=== PATIENT | female | born 1995 | race Two or more races ===

== ENCOUNTER 2025-03-20 13:52 | Inpatient (IN) | payer BC, SELFPAY ==
[2025-03-20] VITALS (7 sets, daily range): BP systolic 107–120; BP diastolic 49–72; BMI 20.8; BMI 21.6
[2025-03-20 08:08] LABS: Hematocrit 36.2 % (37.0-47.0); Hemoglobin 11.5 g/dL (12.0-16.0); Mean Corp Hgb Conc. 31.8 g/dL (33.0-37.0); Mean Corpuscular Volume 82.6 fL (81.0-99.0); Nucleated Red Blood Cells % 0 %; Platelet Count 180 10^3/uL (130-400); Red Cell Dist. Width 18.1 % (11.5-14.5)
--- NOTE | 2025-03-20 08:23 | ED.GENMED ---
History of Present Illness
General
Chief Complaint: Numbness
Source: patient
Time Seen by Provider: 03/20/25 08:04
History of Present Illness
History of Present Illness:
29-year-old female presents to the emergency room multiple complaints but primarily paresthesias existing in the left neck, shoulder, face and the upper part of the left anterior chest. Symptoms began a couple days ago vomiting just her left neck
and has moved to the above areas. Patient also feels a little short of breath and is having some mild abdominal cramping. Patient denies any focal weakness. She has been able to perform all her daily activities without any limitation. The
shortness of breath is not worse with activity. She does not have any chest pain. She does not have any pain with deep inspiration. No recent travel or periods of immobilization. Patient takes Depakote but no other prescription medications. She
denies any recreational drug use. No recent illnesses
Phy Exam
Physical Exam
Physical Exam:
General: Awake, Alert, Oriented X3. No acute distress.
Vitals: unremarkable
Head: Atraumatic
Eyes: Pupils equal, EOMI
Throat: Airway intact, no exudates
Neck: Trachea midline
Lungs: Clear and equal b/l
Heart: Regular rate, no murmurs
Abd: Soft, Nontender, No pulsatile mass
Neuro: Cranial nerves intact, muscle strength equal bilaterally, cerebellar exam normal. Sensation intact to light touch throughout the body. Patient notes there is more of a tingly feeling in the above noted areas but she does have sensation.
Skin: Warm, dry, no rash
Extremities: pulses equal b/l, no edema
Course
Orders/Labs/Results
Orders:
Orders
03/20/25 07:24
Electrocardiogram (*1) Urgent
Reason for Study: Shortness of Breath
EKG- Treatment ONCE
03/20/25 07:39
Test Result ONCE
03/20/25 07:58
Complete Blood Count/With Diff Urgent
03/20/25 08:21
Add On- LAB Urgent
Tests Added?: TSH w reflex T4, Lyme progressive, thiamine, folate
03/20/25 08:22
CT Head W/o Iv Contrast Urgent
Comment:
Reason For Exam: left face/neck paresthesia
CR Chest - 2 Views Urgent
Comment:
Reason For Exam: sob
03/20/25 08:55
Comprehensive Metabolic Panel Urgent
Folate Urgent
Comment: ADD ON
HCG, Serum Qualitative Screen Urgent
Lyme Progressive Urgent
Comment: ADD ON
TSH Reflex To Free T4 Urgent
Comment: ADD ON
Vitamin B1, Whole Blood [S] Urgent
03/20/25 09:55
MR Brain W/o & With Contrast Routine
Comment:
Reason For Exam: MS, left optic neuritis
Recent pill cam endoscopy?: No
03/20/25 10:00
MethylPREDNISolone PF [Solu-Medrol Pf] 250 mg IV Q6H
03/20/25 13:32
Admit/Transfer Patient As Directed
Co-Sign Provider:
Level of Care: Inpatient admission
Assign to:: Medical/Surgical
Physician / Group: sade beckwith
Diagnosis: L sided numbness
Reason for Hospitalization: L sided numbness
Expected length of stay greater than two midnights?: Yes
ELOS- Estimated Length of Stay in days: 2
I certify the patient meets the requirements for IP care: Yes
PRN Pain Medication Management As Directed
May give lesser potent ordered pain med per pt: Yes
preference::
Protocol:: Medication orders for pain may be administered in a
manner that supports deferring to patient preference
when the pt is:
- Requesting an ordered lesser potent pain medication.
Least to most potent pain medications are defined
as: acetaminophen < NSAID < tramadol < opioids
(morphine, oxycodone, hydromorphone).
- Requesting a lesser dose of the same medication IF
ORDERED.
- Requesting a less intrusive route of administration
if both routes are prescribed by the provider (PO <
IV).
03/20/25 13:33
Code Status As Directed
Resuscitation Status: Full Code
Abnormal Lab Results
03/20/25 03/20/25
07:58 08:55
Hgb 11.5 L g/dL
(12.0-16.0)
Hct 36.2 L %
(37.0-47.0)
MCH 26.3 L pg
(27.0-31.0)
MCHC 31.8 L g/dL
(33.0-37.0)
RDW 18.1 H %
(11.5-14.5)
MPV 11.9 H fL
(7.4-10.4)
Chloride 108 H mmol/L
(98-107)
Folate > 20.0 H ng/ml
(2.76-20)
03/20/25 07:58
03/20/25 08:55
Vital Signs
Initial and Last Documented VS:
Initial Vital Signs
Temp Pulse Resp BP Pulse Ox
98.1 F 54 18 112/57 100
03/20/25 07:20 03/20/25 07:20 03/20/25 07:20 03/20/25 07:20 03/20/25 07:20
Last Documented Vital Signs
Temp Pulse Resp BP Pulse Ox
98.1 F 55 18 115/72 100
03/20/25 07:20 03/20/25 10:50 03/20/25 10:50 03/20/25 10:50 03/20/25 10:50
MDM/Problems Addressed
Differential Diagnosis Includes:
MS, lyme, vitamin deficiency,
MDM/Problems Addressed:
Patient presents the emergency room with unusual distribution of paresthesia. Patient also complaining of chest and jaw pain. Initial set of labs are unremarkable. CT of the head is unremarkable. The overall presentation concerns me for an MS
given the unusual distribution. Neurology consultation obtained. Dr. Loza also has a high suspicion for MS. We will hospitalize the patient and empirically start Solu-Medrol.
*Radiology
Radiology exam reviewed: radiology read reviewed
*Pulse Oximetry
SaO2: 100
Oxygen Mode of Delivery: Room air
Patient hypoxic: no
*EKG
Interpreted by ED Provider?: Yes
Interpretation: abnormal
Heart Rate: 46
Rate: bradycardiac
Rhythm: sinus
[place]: normal axis
Interval: normal interval
QRS Pattern: normal QRS
Ischemia: no ischemia
*Welder Fitter Interpretation
Rate: bradycardiac
Interpretation: abnormal
Heart Rate: 46
Rhythm: sinus
*Critical Care Note
Total Time (30-74mins, 75-104mins- exclusive of procedures): Not Applicable
ED Attending Note
-
Portions of this chart may have been created with voice recognition software.� Occasional wrong word or��sound alike� substitutions may have occurred due to the inherent limitations of voice recognition software.
Discharge Plan
Departure
Patient Disposition: Admit
Date of Disposition: 03/20/25
Time of Disposition: 10:10
Admit to: Med/Surg
Presentation/result/management discussed w/ accepting MD/DO: Hospitalist
Condition: Fair
Discharge Problem:
Paresthesia
Interventions
Interventions:
*Risk Screen - Suicide Last Done: 03/20/25 07:20
*General Assessment Last Done: 03/20/25 07:20
*Neglect/Abuse Screening Last Done: 03/20/25 07:20
*ED- Fall Risk Assessment Last Done: 03/20/25 08:11
*ED COVID-19 Vaccine History Last Done: 03/20/25 08:11
ED- Neurological Assessment Last Done: 03/20/25 08:11
[2025-03-20 09:29] LABS: HCG, Serum Qualitative Screen Negative
[2025-03-20 09:33] LABS: ALT (SGPT) < 10 U/L (0-35); AST (SGOT) 16 U/L (14-36); Albumin 4.5 g/dl (3.5-5.0); Alkaline Phosphatase 44 U/L (38-126); Blood Urea Nitrogen 11 mg/dl (7-17); Calcium 9.4 mg/dl (8.4-10.2); Carbon Dioxide 24 mmol/L (22-30); Chloride 108 mmol/L (98-107); Estimated Creatinine Clearance 103 ml/min; Glucose 90 mg/dl (70-99); Potassium 4.1 mmol/L (3.5-5.1); Sodium 141 mmol/L (135-145); Total Protein 7.3 g/dl (6.3-8.2); eGFR > 60.00
--- NOTE | 2025-03-20 09:56 | CON.NEURO ---
Neuro Assessment/Plan
Assessment
suspect multiple sclerosis
exam with subtle left sided weakness numbness and left eye red desaturation which probably represents an initial presentation of optic neuritis which was asymptomatic.
admit for brain MRI w/o and w/ contrast
Solumedrol 250 q6 hrs tentatively 3 days for symptomatic recovery though it will not change the overall course
Consultation
Order
Date of Consultation: 03/20/25
Requesting Provider: Roberth Stewart
Reason for Consult: left sided numbness
Subjective/Objective
Subjective Data
Date of Service: March 20, 2025
29 year old right handed woman evaluated for left neck/shoulder/face/upper arm numbness. started last night left neck/skull base and has since spread. some tenderness left trapezius. no weakness, vision loss, double vision, speech changes.
h/o L ACL surgery after which she had numbness in the area.
Objective Data
Vital Signs
Temp Pulse Resp BP Pulse Ox
36.7 C 50 18 107/67 100
03/20/25 07:20 03/20/25 08:14 03/20/25 08:14 03/20/25 08:14 03/20/25 08:25
Lab Results
03/20/25 07:58
03/20/25 08:55
Sodium 141 mmol/L (135-145) 03/20/25 08:55
Potassium 4.1 mmol/L (3.5-5.1) 03/20/25 08:55
BUN 11 mg/dl (7-17) 03/20/25 08:55
Glucose 90 mg/dl (70-99) 03/20/25 08:55
Calcium 9.4 mg/dl (8.4-10.2) 03/20/25 08:55
Patient Allergies
No Known Allergies Allergy (Unverified 03/20/25 07:19)
Physical Exam
-
AAOx3, speech clear, language intact
mild red desaturation OS. VFF, EOMI, face symmetric
trace LUE/LE weakness, left pronator drift
sensation with mild decreased pin left scalp/neck down to mid back/upper chest, and patch numbness LLE which she reports is chronic
finger to nose normal
Medications
-
Active Medications
Generic Name Dose Route Start Last Admin
Trade Name Freq PRN Reason Stop Dose Admin
Methylprednisolone Sodium Succinate 250 mg 03/20/25 10:00
Methylprednisolone Pf 125 Mg/2 Ml Vial IV 03/23/25 09:59
Q6H FRANCI
[2025-03-20 10:39] LABS: Folate > 20.0 ng/ml (2.76-20)
[2025-03-20] MEDS: SOLU-MEDROL PF 250 MG IV ×3 (10:47→21:34)
--- NOTE | 2025-03-20 11:29 | HPS.HSE ---
Family Physician
-
Family Physician: Timi Faust MD
Chief Complaint
-
Left-sided numbness
History of Present Illness
29-year-old female with a past medical history of bipolar disorder who presents with numbness of the left neck, left face, for the past 2 to 3 days. Patient reports this morning, her numbness extended to her left upper extremity, and around her
left chest. Associated symptoms include shortness of breath, and abdominal cramping after eating certain foods. She denies dysphagia, dysarthria, or changes in vision. She reports having some left-sided weakness when being evaluated by neurology.
Denies chest pain. No fever, no vomiting. She has dark stools from taking iron. No dysuria, no bloody stools.
Medical History
Past Medical History
Past Medical History: Reports Other
Additional Past Medical History:
Bipolar disorder
Past Surgical History: Reports Other
Additional Past Surgical History:
Left ACL surgery x 2
Freedom teeth removal
Dental implant
Social History
Tobacco: Non-smoker
Alcohol: None
Drug: None
Family History
Family History: Other (Denies family history of MS)
Allergies / Home Medications
Allergies reflects when Allergies were last updated in [facility].
Home Medications with original date entered in [facility]
Allergy/Medication List:
Allergies
Allergy/AdvReac Type Severity Reaction Status Date / Time
No Known Allergies Allergy Unverified 03/20/25 07:19
Home Medications Table - record
�Medication �Instructions �Recorded �Confirmed
cranberry fruit 450 mg tablet 450 mg PO DAILY Supplement 03/20/25 03/20/25
(cranberry)
divalproex 500 mg tablet,extended 500 mg PO QPM Mental Health/Anxiety 03/20/25 03/20/25
release 24 hr
ferrous sulfate 325 mg (65 mg 325 mg PO DAILY Supplement 03/20/25 03/20/25
iron) tablet
lemon balm 500 mg capsule 250 mg PO DAILY Supplement 03/20/25 03/20/25
omega-3 fatty acids-fish oil 684 1 cap PO DAILY Supplement 03/20/25 03/20/25
mg-1,200 mg capsule,delayed release
Review of Systems
-
A 12 point ROS was completed and negative except as noted: Yes
Physical Exam
Vital Signs
Vital Signs
Temp Pulse Resp BP Pulse Ox
98.1 F 55 18 115/72 100
03/20/25 07:20 03/20/25 10:50 03/20/25 10:50 03/20/25 10:50 03/20/25 10:50
Physical Exam
General: No Apparent Distress
HEENT: NormoCephalic, Anicteric and Moist mucous membranes
Respiratory: Clear
Cardiac: S1/S2 and Regular Rhythm
GI: Soft, Non Tender, Non Distended and Normal Bowel Sounds
Musculoskeletal: No Clubbing, No Cyanosis and No Edema
Skin: Warm and Dry
Neuro: Awake, Alert, Oriented and Other (Subtle left-sided weakness, per neurology: left eye red desaturation)
Psych: Calm
Laboratory Results
-
03/20/25 07:58
03/20/25 08:55
Laboratory Results
Total Bilirubin 0.5 mg/dl (0.2-1.3) 03/20/25 08:55
AST 16 U/L (14-36) 03/20/25 08:55
ALT < 10 U/L (0-35) 03/20/25 08:55
Alkaline Phosphatase 44 U/L (38-126) 03/20/25 08:55
Impression/Plan
-
HPI: 29-year-old female with a past medical history of bipolar disorder who presents with numbness of the left neck, left face, for the past 2 to 3 days. Patient reports this morning, her numbness extended to her left upper extremity, and around
her left chest. Associated symptoms include shortness of breath, and abdominal cramping after eating certain foods. She denies dysphagia, dysarthria, or changes in vision. She reports having some left-sided weakness when being evaluated by
neurology. Denies chest pain. No fever, no vomiting. She has dark stools from taking iron. No dysuria, no bloody stools.
#Left-sided paresthesia/numbness
#Subtle left-sided weakness
#Optic neuritis with left eye red desaturation
Appreciate neurology input, patient's symptoms are concerning for multiple sclerosis
Started on Solu-Medrol 250 mg every 6 hours
PT/OT
#Abdominal cramping
Bentyl as needed, monitor
#Shortness of breath
Patient is breathing comfortably, no wheezing, she is not hypoxic
Monitor for now
#Bipolar disorder
Continue Depakote
#Probable iron deficiency anemia
Continue home ferrous sulfate supplements
DVT prophylaxis�OOB a 4 times daily
Full code
Updated mom at bedside 03/20
Total time spent to see the patient on the floor, examine the patient, review data and lab results, discuss treatment plan with patient, nursing staff around 65 minutes.
[2025-03-20] MEDS: DEPAKOTE ER (24 HR RELEASE) 500 MG PO (17:05)
[2025-03-20] MEDS: FEOSOL 325 MG PO (17:06)
[2025-03-20] MEDS: MOTRIN 600 MG PO (21:22)
[2025-03-21] MEDS: SOLU-MEDROL PF 250 MG IV ×4 (04:56→22:20)
[2025-03-21] MEDS: MOTRIN 600 MG PO (05:06)
[2025-03-21 07:49] VITALS: BP 86/38
--- NOTE | 2025-03-21 08:57 | W.PN.HOSP.TC ---
Today's Communication/Plan
-
see bold
Assessment / Plan
Assessment / Plan
HPI: 29-year-old female with a past medical history of bipolar disorder who presents with numbness of the left neck, left face, for the past 2 to 3 days. Patient reports this morning, her numbness extended to her left upper extremity, and around
her left chest. Associated symptoms include shortness of breath, and abdominal cramping after eating certain foods. She denies dysphagia, dysarthria, or changes in vision. She reports having some left-sided weakness when being evaluated by
neurology. Denies chest pain. No fever, no vomiting. She has dark stools from taking iron. No dysuria, no bloody stools.
#Left-sided paresthesia/numbness
#Subtle left-sided weakness
#Optic neuritis with left eye red desaturation
Appreciate neurology input, patient's symptoms are concerning for multiple sclerosis
Brain MRI shows subtle increased enhancement of the left optic nerve, suggestive of left optic neuritis
Follow-up C-spine and thoracic spine MRI, patient also for LP today
Continue Solu-Medrol 250 mg every 6 hours
PT/OT
#Abdominal cramping
Bentyl as needed, monitor
#Shortness of breath
Patient is breathing comfortably, no wheezing, she is not hypoxic
Monitor for now
#Bipolar disorder
Continue Depakote
#Probable iron deficiency anemia
Continue home ferrous sulfate supplements
DVT prophylaxis�OOB a 4 times daily
Full code
Updated mom at bedside 03/21
Total time spent to see the patient on the floor, examine the patient, review data and lab results, discuss treatment plan with patient, nursing staff around 38 minutes.
Physical Exam
General: No Apparent Distress
HEENT: NormoCephalic, Anicteric and Moist mucous membranes
Respiratory: Clear
Cardiac: S1/S2 and Regular Rhythm
GI: Soft, Non Tender, Non Distended and Normal Bowel Sounds
Musculoskeletal: No Clubbing, No Cyanosis and No Edema
Skin: Warm and Dry
Neuro: Awake, Alert, Oriented and Other (Subtle left-sided weakness, per neurology: left eye red desaturation)
Psych: Calm
Anticipated Discharge: Within 24 hours
Subjective/Interval History
-
Date of Service: March 21, 2025
Patient reports improvement in her left-sided numbness and weakness. Denies headache, vision changes, dysarthria, dysphagia. No fever, no vomiting.
Objective Data
-
Vital Signs:
Vital Signs
Temp Pulse Resp BP Pulse Ox
98.7 F 53 14 86/38 99
03/21/25 07:49 03/21/25 07:49 03/21/25 07:49 03/21/25 07:49 03/21/25 08:28
I&O
03/20/25 03/21/25 03/22/25
06:59 06:59 06:59
Intake Total 480 / 480
Balance 480 / 480
[2025-03-21] MEDS: FEOSOL 325 MG PO (08:58)
--- NOTE | 2025-03-21 09:23 | PTOTSP ---
The patient is independent with ambulation and stairs, no strength or coordination deficits noted with mobility. No PT needs identified at this time, will sign off.
[2025-03-21 11:18] VITALS: BP 106/49
[2025-03-21 12:49] VITALS: BP 108/56; PULSE 62; O2SAT 100
--- NOTE | 2025-03-21 12:58 | PTOTSP ---
pt currently requires no assistance to complete simple ADLs, functional transfers, ambulation. pt demonstrates no overt deficits, no symptoms from chief complaint. no acute OT needs identified, will sign off.
[2025-03-21 13:01] LABS: INR 1.21; PT 15.8 Sec (11.4-14.6)
[2025-03-21 13:41] LABS: Lyme Antibody Screen, EIA Negative (Negative)
[2025-03-21] MEDS: MAALOX 30 ML PO (14:25)
[2025-03-21] MEDS: ATIVAN 1 MG PO (14:51)
[2025-03-21] MEDS: DEPAKOTE ER (24 HR RELEASE) 500 MG PO (17:11)
--- NOTE | 2025-03-21 17:11 | CM ---
Alert awake oriented patient who lives with her mom oJhnson in a 2 story home with 2 steps to enter and 20 steps to bed/bathroom. She is independent in activates of daily living.She does drive .No adaptive devices. Offered VN she decline dneed.
No hx VN in past . No SNF hx
Pharmacy [facility]
PCP Dr Faust
PLAN Home with no needs
--- NOTE | 2025-03-21 19:43 | W.PN.NEURO.1 ---
Today's Communication / Plan
-
LP tomorrow then DC
Neuro Assessment/Plan
Assessment
MRI brain imgs and report reviewed, left optic nerve enhancement consistent with optic neuritis. no other lesions
MRI cervical and thoracic cord no lesions
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
i believe she had one event acutely that hit two spaces however no chronic lesion to make dissemination in time
LP for oligoclonal bands which could fulfill dissemination in time, and for NMO antibody
then she can go home. 2 week follow up with neuro [employer] re: results, and if studies negative and CIS remains the diagnosis her choice of starting Copaxone or see if she has a second attack
will perform trapezius trigger point inj tomorrow before d/c so she can have steroids in her system until seen by neuro outpatient
all this discussed with patient and family questions answered and clarified
Subjective/Objective
Subjective Data
Date of Service: March 21, 2025
patient reports weakness/numbness/paresthesias are essentially resolved, and left trapezius trigger point pain is reduced with steroids
concerns for recurring symptoms when steroids wear off before healed, asking for outpatient steroids until she sees neuro as outpatient
Objective Data
Vital Signs
Temp Pulse Resp BP Pulse Ox
36.7 C 55 14 106/49 100
03/21/25 11:18 03/21/25 11:18 03/21/25 11:18 03/21/25 11:18 03/21/25 11:18
Lab Results
03/20/25 07:58
03/20/25 08:55
PT 15.8 Sec (11.4-14.6) H 03/21/25 12:40
INR 1.21 03/21/25 12:40
Sodium 141 mmol/L (135-145) 03/20/25 08:55
Potassium 4.1 mmol/L (3.5-5.1) 03/20/25 08:55
BUN 11 mg/dl (7-17) 03/20/25 08:55
Glucose 90 mg/dl (70-99) 03/20/25 08:55
Calcium 9.4 mg/dl (8.4-10.2) 03/20/25 08:55
Patient Allergies
No Known Allergies Allergy (Unverified 03/20/25 07:19)
[2025-03-21 23:00] VITALS: BP 95/49
[2025-03-22] MEDS: SOLU-MEDROL PF 250 MG IV ×2 (04:55→09:27)
[2025-03-22] MEDS: FEOSOL 325 MG PO (07:41)
[2025-03-22 07:45] VITALS: BP 99/49
--- NOTE | 2025-03-22 09:17 | W.PN.HOSP.TC ---
Today's Communication/Plan
-
Cleared by neurology for discharge today
Assessment / Plan
Assessment / Plan
HPI: 29-year-old female with a past medical history of bipolar disorder who presents with numbness of the left neck, left face, for the past 2 to 3 days. Patient reports this morning, her numbness extended to her left upper extremity, and around
her left chest. Associated symptoms include shortness of breath, and abdominal cramping after eating certain foods. She denies dysphagia, dysarthria, or changes in vision. She reports having some left-sided weakness when being evaluated by
neurology. Denies chest pain. No fever, no vomiting. She has dark stools from taking iron. No dysuria, no bloody stools.
#Left-sided paresthesia/numbness
#Subtle left-sided weakness
#Optic neuritis with left eye red desaturation
#Clinically isolated syndrome
Appreciate neurology input, patient's symptoms are concerning for multiple sclerosis
Per neurology, patient's diagnosis is currently clinically isolated syndrome since we do not have test results to confirm multiple sclerosis
Brain MRI shows subtle increased enhancement of the left optic nerve, suggestive of left optic neuritis, C-spine and T-spine MRI negative for lesions
Status post lumbar puncture 03/22, oligoclonal bands pending
Dramatically improved with Solu-Medrol 250 mg every 6 hours
PT/OT -patient is independent
Cleared by neurology for discharge, she needs to follow-up with an MS specialist neurologist in the office
#Abdominal cramping
Bentyl as needed, monitor
#Shortness of breath
Patient is breathing comfortably, no wheezing, she is not hypoxic
Monitor for now
#Bipolar disorder
Continue Depakote
#Probable iron deficiency anemia
Continue home ferrous sulfate supplements
DVT prophylaxis�OOB a 4 times daily
Full code
Updated mom at bedside 03/22
Physical Exam
General: No Apparent Distress
HEENT: NormoCephalic, Anicteric and Moist mucous membranes
Respiratory: Clear
Cardiac: S1/S2 and Regular Rhythm
GI: Soft, Non Tender, Non Distended and Normal Bowel Sounds
Musculoskeletal: No Clubbing, No Cyanosis and No Edema
Skin: Warm and Dry
Neuro: Awake, Alert, Oriented and Other (Subtle left-sided weakness, per neurology: left eye red desaturation)
Psych: Calm
Anticipated Discharge: Today
Subjective/Interval History
-
Date of Service: March 22, 2025
Patient's left trapezius felt better after her trigger point injection. Her numbness has improved. No fever, no vomiting.
Objective Data
-
Vital Signs:
Vital Signs
Temp Pulse Resp BP Pulse Ox
98.4 F 64 14 99/49 97
03/22/25 07:45 03/22/25 07:45 03/22/25 07:45 03/22/25 07:45 03/22/25 07:45
I&O
03/21/25 03/22/25 03/23/25
06:59 06:59 06:59
Intake Total 480 / 480 1440 / 1440
Balance 480 / 480 1440 / 1440
[2025-03-22 10:03] VITALS: BP 107/57; BP_SYST 56
[2025-03-22 11:12] VITALS: BP 113/55; BP_SYST 57
[2025-03-22 12:17] LABS: CSF Color Colorless; Red Cell Count/CSF 9 mm^3; White Cell Count/CSF 3 mm^3 (0-5)
--- NOTE | 2025-03-22 14:36 | W.DCSUMMARY ---
Discharge Summary
Discharge Data
Date of Admission: 03/20/25
Date of Discharge: 03/22/25
-
Pending Results: No
Hospital Course
Discharge diagnosis:
Clinically isolated syndrome
Left-sided paresthesia/numbness
Subtle left-sided weakness
Optic neuritis with left eye red desaturation
Bipolar disorder
Consults: Neurology
Brain MRI:
Subtle increased STIR signal and enhancement involving the left optic nerve, suggestive of the given clinical diagnosis of the left optic neuritis.
The rest of the brain has a normal MR appearance. No evidence for another focal area of demyelination or abnormal enhancement.
C-spine/T-spine MRI:
There is no abnormal cord signal or enhancement of the cervical spine.
There is multilevel mild disc degeneration with a small annular fissure of C5-C6. There is no significant spinal canal or neuroforaminal narrowing.
There is no abnormal signal or enhancement within the thoracic spinal cord.
There is no significant spinal canal or neuroforaminal stenosis.
Procedures:
03/22/2025�lumbar puncture
Hospital course:
29-year-old female with a past medical history of bipolar disorder who presented with left sided paresthesia/numbness and subtle left-sided weakness. Patient was seen in conjunction of neurology, she was found to have optic neuritis with left eye
red desaturation. Her symptoms were concerning for possible multiple sclerosis. She was treated with IV steroids. Brain MRI confirms left optic neuritis. C-spine and T-spine MRI were negative for lesions. She had a lumbar puncture as well. CSF
oligoclonal bands were negative. Patient's left-sided paresthesia improved. She did receive a trigger point injection for her left trapezius trigger point. Her symptoms improved. Per neurology, patient's diagnosis is currently clinically
isolated syndrome since we do not have enough test results to confirm multiple sclerosis. She is medically stable and cleared by neurology for discharge. She has been instructed to follow-up with an MS specialist.
Disposition: Home self-care
Discharge planning: Required 39 minutes
Discharge Plan
-
Patient Disposition: Home (Routine Discharge)
Discharge Diagnosis/Procedures: Clinically isolated syndrome
Condition: Good
Diet: Regular
Activity: As tolerated
Driving Restrictions: As prior to admission
Activity Restrictions/Additional Instructions:
Please follow-up with a neurologist, especially one that specializes in MS disorders, as soon as possible.
Also follow-up with your primary care provider in 1 week.
Referrals:
Timi Faust MD [Family Provider] - in one week
Prescriptions:
Continued
ferrous sulfate 325 mg (65 mg iron) Tablet
325 mg PO DAILY
divalproex 500 mg Tablet Extended Release 24 Hr
500 mg PO QPM
omega-3 fatty acids-fish oil 684-1,200 mg Capsule,Delayed Release(Dr/Ec)
1 cap PO DAILY
cranberry 450 mg Tablet
450 mg PO DAILY
lemon balm 500 mg Capsule
250 mg PO DAILY
Discharge Orders:
Discharge Patient (As Directed); Ordered 03/22/25
Ordered By: Aakash Nowak
Discharge Date and Time
Discharge Date/Time: 03/22/25 15:38
Print Language: FRISIAN
--- NOTE | 2025-03-22 14:44 | W.PN.UPDATE ---
Update Note
Progress Note Update
procedure note
Trigger point inj 1-2
M79.10 trigger point myalgia
in 3 cc syringe was drawn 2 cc bupivacaine 0.5 and 40 mg Kenalog-40
left trapezius trigger point palpated and 3 cc injected
--- NOTE | 2025-03-22 15:00 | CM ---
entered order for discharge.
Her mom in room . Her mom will drive her home.
Offered VN she declined need.
PLAN Home no needs
[2025-03-22 15:34] VITALS: BP 112/52
[2025-03-23 13:35] LABS: Vitamin B1, Whole Blood 105 nmol/L (70-180)
[2025-03-24 19:06] LABS: Albumin, CSF 26 mg/dL (0-35); Albumin, Serum 3929 mg/dL (3500-5200); IgG, CSF 3.7 mg/dL (0.0-6.0)
== END 2025-03-22 15:38 | disposition home or self-care (01) | DRG 59 ==
LOC: 3 WEST ACU 13:52
PROVIDERS: Emergency Medicine; Radiology Vascular & Interventional Radiology; ADMITTING PHYSICIAN Family Medicine; CONSULT PHYSICIAN Psychiatry & Neurology Clinical Neurophysiology; EMERGENCY PHYSICIAN Emergency Medicine; FAMILY PHYSICIAN Family Medicine
DX: G35 Multiple sclerosis (principal); H46.9 Unspecified optic neuritis; F31.9 Bipolar disorder, unspecified; D50.9 Iron deficiency anemia, unspecified
CPT/HCPCS: 62328; 70450; 70553; 71046; 72156; 72157; 80053; 82040; 82042; 82746; 82784; 82945; 83916; 84157; 84425; 84443; 84703; 85025; 85610; 86618; 89051; 93005; 97161; 97166; 99285; A9575

== ENCOUNTER 2025-03-25 10:47 | Emergency (ER) | payer BC, SELFPAY ==
[2025-03-25 10:56] VITALS: BP 112/70
[2025-03-25 12:01] VITALS: BMI 23.9
--- NOTE | 2025-03-25 13:32 | ED.GENMED ---
History of Present Illness
General
Chief Complaint: Headache
Source: patient, significant other and family (mother)
Exam Limitations: none
Time Seen by Provider: 03/25/25 11:58
Nursing documentation reviewed up to this point in time: agreed with
History of Present Illness
History of Present Illness:
Ms. Deirdre Gregg is a 29yoF with a PMH of clinically isolated syndrome (dx 03/21/25) and bipolar disorder (on Depakote), who is presenting with a severe migraine as well as fatigue, urinary retention, and heat intolerance.
She was recently admitted 03/20/25-03/22/25 for concern for multiple sclerosis. She presented to the ED on 03/20/25 for numbness/paresthesia in her left shoulder, chest, neck, and face, which was ameliorated with a L shoulder steroid injection. She
received a lumbar puncture on 03/22/25 and was discharged. She has a neurology appointment on 04/03/25. She received IV steroids that helped her symptoms while inpatient.
A mild headache started after discharge for 2 days. She woke up this morning with a severe headache. She is holding her head in her hands as we speak. She tried Tylenol but it did not provide sufficient relief. She denies photophobia. She denies her
headache increasing with standing up. She has had tension headaches before but nothing like this before.
She states she has difficulty emptying her bladder completely. She denies suprapubic pain. She stated the urinary retention started near the end of her admission.
She noticed her heat intolerance when she was walking her dog outside in the warm weather yesterday.
Review of Systems
Review of Systems
All Other Systems: ROS reviewed and negative except as documented in HPI and ROS
Phy Exam
Physical Exam
Physical Exam:
General: holding head in pain; alert; conversant
Eyes: EOMI
General Physical Exam
General Presentation: well appearing and moderate distress (holding head in pain)
General age: appears stated age
General Habitus: normal
General Mental: alert
Eye Exam
Eye Exam: EOMI, cornea clear and conjunctiva normal
Neurological Exam
Neurological Exam: alert and speech normal
Skin Exam
Skin Exam: normal color
Course
Orders/Labs/Results
Orders:
Orders
03/25/25 13:32
Ketorolac [Toradol] 30 mg IV NOW STA
03/25/25 13:35
Metoclopramide [Reglan] 10 mg IV NOW STA
03/25/25 13:37
US Urinary Bladder Only Urgent
Comment:
Reason For Exam: urinary retention; pending MS workup
03/25/25 15:02
0.9% Sodium Chloride 1000 ml [Nss] 1,000 ml IV BOLUS
03/25/25 15:37
Urinalysis Reflex To Culture Urgent
Date Specimen was Collected: 03/25/25
Time Specimen was Collected: 13:46
Vital Signs
Initial and Last Documented VS:
Initial Vital Signs
Temp Pulse Resp BP Pulse Ox
97.9 F 69 18 112/70 100
03/25/25 10:56 03/25/25 10:56 03/25/25 10:56 03/25/25 10:56 03/25/25 10:56
Last Documented Vital Signs
Temp Pulse Resp BP Pulse Ox
97.9 F 60 18 112/70 100
03/25/25 10:56 03/25/25 16:24 03/25/25 16:24 03/25/25 10:56 03/25/25 16:24
MDM/Problems Addressed
Differential Diagnosis Includes:
Migraine
Postdural puncture headache
Neurogenic bladder
UTI
Uhthoff phenomenon
MDM/Problems Addressed:
Toradol 15 mg IV and Reglan 10 mg IV for migraine
IV fluids for possible post-dural puncture headache
Bladder scan: 68 ml (normal)
UA to evaluate for possible UTI causing urinary symptoms
*Pulse Oximetry
SaO2: 100
Oxygen Mode of Delivery: Room air
Patient hypoxic: no
*Critical Care Note
Total Time (30-74mins, 75-104mins- exclusive of procedures): Not Applicable
ED Attending Note
-
Portions of this chart may have been created with voice recognition software.� Occasional wrong word or��sound alike� substitutions may have occurred due to the inherent limitations of voice recognition software.
Discharge Plan
Departure
Patient Disposition: Home (Routine Discharge)
Date of Disposition: 03/25/25
Patient with high blood pressure during this ER visit?: No
Condition: Fair
Discharge Problem:
Headache, Fatigue, Urinary retention
Instructions: Headache, Adult (DC)
Prescriptions:
New
metoclopramide HCl [Reglan] 10 mg tablet
10 mg PO Q8H Qty: 9 0RF
No Action
ferrous sulfate 325 mg (65 mg iron) Tablet
325 mg PO DAILY
divalproex 500 mg Tablet Extended Release 24 Hr
500 mg PO QPM
omega-3 fatty acids-fish oil 684-1,200 mg Capsule,Delayed Release(Dr/Ec)
1 cap PO DAILY
cranberry 450 mg Tablet
450 mg PO DAILY
lemon balm 500 mg Capsule
250 mg PO DAILY
pregabalin [Lyrica] 50 mg capsule
50 mg PO BID Qty: 20 0RF
Referrals:
Timi Faust MD [Family Provider]
Stand Alone Forms: Return to Work
Activity Restrictions/Additional Instructions:
You came to the ED for headache, as well as difficulty emptying the bladder, fatigue, and heat intolerance. It is possible your headache is resulting from the lumbar puncture. You were given IV fluids, and try to drink plenty of fluids, which
helps treat this kind of headache.
The symptoms may all be related to the clinically isolated syndrome. The bladder scan did not demonstrate significant urinary retention but your urinary retention is still an important symptom to tell your neurologist about. Heat intolerance can
also occur multiple sclerosis, known as the Uhthoff phenomenon.
Please return to the emergency department if you develop vomiting, blurry vision, or focal neurological deficits, such as tingling or numbness in the face.
Interventions
Interventions:
*Risk Screen - Suicide Last Done: 03/25/25 10:56
*General Assessment Last Done: 03/25/25 10:56
*Neglect/Abuse Screening Last Done: 03/25/25 12:01
*ED- Fall Risk Assessment Last Done: 03/25/25 12:01
*ED COVID-19 Vaccine History Last Done: 03/25/25 10:56
*Nursing Disposition Last Done: 03/25/25 16:27
ED- Neurological Assessment Last Done: 03/25/25 12:01
Discharge Date and Time
Discharge Date/Time: 03/25/25 16:28
Print Language: BENINESE
[2025-03-25] MEDS: REGLAN 10 MG IV (13:58)
[2025-03-25] MEDS: TORADOL 30 MG IV (13:59)
[2025-03-25 15:47] LABS: Urine Character Clear (Clear)
== END 2025-03-25 16:28 | disposition home or self-care (01) ==
LOC: EMR 10:47
PROVIDERS: EMERGENCY PHYSICIAN Emergency Medicine; FAMILY PHYSICIAN Family Medicine
DX: R51.9 Headache, unspecified (principal); R53.83 Other fatigue; R33.9 Retention of urine, unspecified; R39.198 Other difficulties with micturition; F31.9 Bipolar disorder, unspecified
CPT/HCPCS: 99284; 96374; 96375; 76857; 81003

== ENCOUNTER 2025-03-29 01:24 | Emergency (ER) | payer BC, SELFPAY ==
[2025-03-29 01:29] VITALS: BP 112/66
[2025-03-29 03:07] VITALS: BP 93/55; BMI 22.1
--- NOTE | 2025-03-29 06:29 | ED.GENMED ---
History of Present Illness
<Oksana Regan DO - Last Filed: 03/29/25 06:41>
General
Chief Complaint: Numbness
Source: patient, previous radiology exam (MRI of the brain, cervical and thoracic spine showing mild left optic neuritis otherwise unremarkable.) and previous hospital records (Recent hospitalization March 20 to March 22 for similar complaints of
paresthesia, left eye discomfort.)
Exam Limitations: none
Time Seen by Provider: 03/29/25 05:03
Nursing documentation reviewed up to this point in time: agreed with
History of Present Illness
History of Present Illness:
This is a 29-year-old female recently hospitalized here March 20 of March 22 with complaints of left-sided paresthesia, mild left eye discomfort. MRI of the brain notable for mild left optic neuritis otherwise unremarkable. MRI cervical and thoracic
spine were unremarkable. LP was unremarkable. Paresthesia resolved with high-dose steroids.
She was discharged to home with diagnosis of clinically isolated syndrome. Concern for evolving MS. She was given a trigger point injection left trapezius muscle a 40 mg of Kenalog and has an initial follow-up appointment with a neurologist at
[facility] on April 03.
She returned to the ED March 25 with complaints of headache as well as concern for difficulty voiding, concern for urinary retention. Headache resolved with IV fluids and has not returned. Bladder ultrasound was unremarkable. No evidence of urinary
retention.
She returns tonight with complaints of recurrent paresthesias now only noted left foot as well as mildly to her left 4th and 5th digit. She has also noted return of mild left eye discomfort but no difficulty with vision, no return of headache. No
weakness.
Past History
<Oksana Regan DO - Last Filed: 03/29/25 06:41>
Past History
ED Past Medical History: Psychiatric
ED Past Surgical History: Orthopedic
Social History
Tobacco: Non-smoker
Alcohol: None
Drug: None
Personal: Single
Living: with family
Employment: Employed
Family History
Family History: Other (Noncontributory)
Phy Exam
<Oksana Regan DO - Last Filed: 03/29/25 06:41>
Physical Exam
Physical Exam:
GENERAL: 29-year-old female appears her stated age, bright and alert, pleasant, easily communicative and in no acute distress. Sitting upright on stretcher, reading a book. Mother is accompanying.
EYE: pupils equal and reactive. anicteric
NECK: Supple, nontender, no meningismus, no significant adenopathy.
ENT: oral mucosa is moist. No rhinorrhea.
CARDIAC: Regular rate and rhythm. no murmur.
LUNGS: Clear breath sounds bilaterally, no acute respiratory distress, no wheezes/rales/rhonchi
ABDOMEN: Soft, nondistended, without focal tenderness
NEUROLOGICAL: Alert and oriented x3, no focal neuro deficits. Gait is ross and steady.
SKIN: Warm and dry, normal color, skin intact. No rash.
MUSCULOSKELETAL: No C/C/E. peripheral pulses are full and equal b/l. No palpable tenderness.
PSYCH: Normal and appropriate interaction.
Course
<Oksana Regan DO - Last Filed: 03/29/25 06:41>
Orders/Labs/Results
Orders:
Orders
03/29/25
Depakane Routine
Comment: May add to blood in lab
03/29/25 06:28
Consult Neurology [NEUROLOGY CONSULT] Urgent
Consulting Provider: Herson Pettit
Was physician already notified: Yes
Reason for consult: paresthesias-concern for MS
03/29/25 07:43
Add On- LAB Routine
Comments:: Please add to today's labs or draw as routine
Tests Added?: NMO antibody, MOGAD antibody, ferritin
03/29/25 07:[address] Non Medication Order As Directed
Physician Order: Document visual acuity bilaterally, please
Above order entered?: Yes
03/29/25 08:09
ALLA, IgG Reflex to HEp-2 [S] Routine
Comment: May add to blood in lab
Ferritin Routine
Folate Routine
Comment: May add to blood in lab
TSH Reflex To Free T4 Routine
Comment: May add to blood in lab
Vitamin B12 Routine
Comment: May add to blood in lab or draw as routine
03/29/25 04:50
03/29/25 04:50
Vital Signs
Initial and Last Documented VS:
Initial Vital Signs
Temp Pulse Resp BP Pulse Ox
98.9 F 64 16 112/66 100
03/29/25 01:29 03/29/25 01:29 03/29/25 01:29 03/29/25 01:29 03/29/25 01:29
Last Documented Vital Signs
Temp Pulse Resp BP Pulse Ox
98.2 F 46 18 118/64 100
03/29/25 09:15 03/29/25 09:15 03/29/25 09:15 03/29/25 09:15 03/29/25 09:15
<Solo Pepper, DO - Last Filed: 03/29/25 10:39>
Orders/Labs/Results
Orders:
Orders
03/29/25
Depakane Routine
Comment: May add to blood in lab
03/29/25 06:28
Consult Neurology [NEUROLOGY CONSULT] Urgent
Consulting Provider: Herson Pettit
Was physician already notified: Yes
Reason for consult: paresthesias-concern for MS
03/29/25 07:43
Add On- LAB Routine
Comments:: Please add to today's labs or draw as routine
Tests Added?: NMO antibody, MOGAD antibody, ferritin
03/29/25 07:[address] Non Medication Order As Directed
Physician Order: Document visual acuity bilaterally, please
Above order entered?: Yes
03/29/25 08:09
ALLA, IgG Reflex to HEp-2 [S] Routine
Comment: May add to blood in lab
Ferritin Routine
Folate Routine
Comment: May add to blood in lab
TSH Reflex To Free T4 Routine
Comment: May add to blood in lab
Vitamin B12 Routine
Comment: May add to blood in lab or draw as routine
03/29/25 04:50
03/29/25 04:50
Vital Signs
Initial and Last Documented VS:
Initial Vital Signs
Temp Pulse Resp BP Pulse Ox
98.9 F 64 16 112/66 100
03/29/25 01:29 03/29/25 01:29 03/29/25 01:29 03/29/25 01:29 03/29/25 01:29
Last Documented Vital Signs
Temp Pulse Resp BP Pulse Ox
98.2 F 46 18 118/64 100
03/29/25 09:15 03/29/25 09:15 03/29/25 09:15 03/29/25 09:15 03/29/25 09:15
<Oksana Regan DO - Last Filed: 03/29/25 06:41>
MDM/Problems Addressed
Differential Diagnosis Includes:
With recent MRI showing left optic neuritis, significant concern for MS.
Although LP was reassuring, negative, there remains some concern for acute, evolving MS.
At this point no indication to repeat urgent imaging. No focal deficits on exam.
Will consult neurology.
Chronic conditions affecting care: Neurological disorder (Optic neuritis noted on recent MRI of the brain) and Psychiatric illness
<Oksana Regan DO - Last Filed: 03/29/25 06:41>
*Pulse Oximetry
SaO2: 99
Oxygen Mode of Delivery: Room air
Patient hypoxic: no
*Critical Care Note
Total Time (30-74mins, 75-104mins- exclusive of procedures): Not Applicable
<Oksana Regan, DO - Last Filed: 03/29/25 06:41>
Update Note
Update Note:
05:45
Case discussed with neurology, Dr. Pettit.
Will evaluate in the ED this a.m.
He recommends initiation of Lyrica which should help with nerve irritation/paresthesia until further evaluated with her neurologist at [place] next week.
Would not recommend additional oral steroids.
<Solo Pepper, DO - Last Filed: 03/29/25 10:39>
Update Note
Update Note:
05:45
Case discussed with neurology, Dr. Pettit.
Will evaluate in the ED this a.m.
He recommends initiation of Lyrica which should help with nerve irritation/paresthesia until further evaluated with her neurologist at [place] next week.
Would not recommend additional oral steroids.
10:30 AM care of patient was physician pending neurology consult. Neurology did consult and added blood work. Some still pending. Neurology suggested Lyrica. Will write for 1 weeks worth until patient can be seen outpatient appointment next week
ED Attending Note
<Oksana Regan, DO - Last Filed: 03/29/25 06:41>
-
Portions of this chart may have been created with voice recognition software.� Occasional wrong word or��sound alike� substitutions may have occurred due to the inherent limitations of voice recognition software.
Discharge Plan
Departure
Patient Disposition: Home (Routine Discharge)
Date of Disposition: 03/29/25
Time of Disposition: 10:36
Patient with high blood pressure during this ER visit?: No
Condition: Good
Discharge Problem:
Paresthesia, Optic neuritis
Prescriptions:
New
pregabalin [Lyrica] 50 mg capsule
50 mg PO BID Qty: 20 0RF
No Action
ferrous sulfate 325 mg (65 mg iron) Tablet
325 mg PO DAILY
divalproex 500 mg Tablet Extended Release 24 Hr
500 mg PO QPM
omega-3 fatty acids-fish oil 684-1,200 mg Capsule,Delayed Release(Dr/Ec)
1 cap PO DAILY
cranberry 450 mg Tablet
450 mg PO DAILY
lemon balm 500 mg Capsule
250 mg PO DAILY
metoclopramide HCl [Reglan] 10 mg tablet
10 mg PO Q8H Qty: 9 0RF
Referrals:
Timi Faust MD [Family Provider]
Activity Restrictions/Additional Instructions:
Please keep your neurology appointment. Please follow-up with your primary care doctor as some of blood work is still pending.
Interventions
Interventions:
*Risk Screen - Suicide Last Done: 03/29/25 01:29
*General Assessment Last Done: 03/29/25 09:14
*Neglect/Abuse Screening Last Done: 03/29/25 01:29
*ED- Fall Risk Assessment Last Done: 03/29/25 09:14
*ED COVID-19 Vaccine History Last Done: 03/29/25 09:14
ED- Neurological Assessment Last Done: 03/29/25 03:11
Discharge Date and Time
Print Language: LITHUANIAN
[2025-03-29 09:04] LABS: Depakane 70.1 ug/ml (50.0-120.0)
[2025-03-29 09:15] VITALS: BP 118/64
--- NOTE | 2025-03-29 09:40 | CON.NEURO4 ---
Addendum entered and electronically signed by Herson Pettit MD 03/29/25 12:14:
Studies reviewed.
I have personally examined the patient. I reviewed and agree with the SUPERVISOR WINTER's Note.
My addenda:
Awake, alert, interactive. No acute distress.
Speech intact.
Follows 2-step requests w/o difficulty. No tremor.
Extra-ocular movements grossly intact.
Facial movements full and symmetric. Hearing intact to normal conversational volume.
Normal UE movements bilaterally.
Neck: full ROM.
Chest: no dyspnea
Heart: no JVD
Ext: (-) Clubbing, (-) Cyanosis, (-) Edema
IMPRESSIONS/RECOMMENDATIONS:
Abrupt onset of recurrent left hemibody sensory change (not including the face) with recently discovered left optic neuritis by MRI imaging
With MRI of brain cervical spine and thoracic spines unremarkable, and unremarkable lumbar puncture, most likely diagnosis is isolated optic neuritis. The paresthesias are most likely secondary to iron deficiency (specifically ferritin deficiency).
There is no current evidence for clinically isolated syndrome at this time as the patient does not have changes radiographically which are suggestive of this disorder
Check blood work for ferritin level, B12, other as metabolic causes for symptomatology
Provide IV iron supplementation which may remediate the patient's symptomatology
Provide pregabalin 50 mg twice a day for remediation of the patient's symptomatology
Follow valproic acid level
D/W patient / family
All questions answered.
Will continue to follow as needed. Patient has scheduled meeting with multiple sclerosis subspecialist in 5 days.
Original Note:
Consultation - Neurology 4
-
CONSULTING PHYSICIAN: Herson Pettit MD
REFERRING PHYSICIAN: ER/Dr. Pepper
DICTATED BY: LIZABETH De La Rosa
DATE/TIME OF REQUEST: 03/29/25
DATE/TIME OF CONSULTATION: 03/29/25
Reason for Consultation: Sensation changes, left eye discomfort
History of Present Illness:
This is a 29-year-old right-handed female who has presented to the hospital with report of recurrent paresthesias, heat intolerance, and left eye strain. Patient initially presented to [facility] on 03/20/25 with report of left-sided neck, shoulder, face,
and chest paresthesias, shortness of breath, and dizziness with heat exposure. MRI brain imaging was obtained and was suggestive of left optic neuritis. MRI brain, cervical, and thoracic spine otherwise was unremarkable. CSF was negative for bands.
She was treated with IV steroids for three days with improvement of her symptoms and discharged home on 03/22/25. She has a follow-up appointment on 04/03/[address] Santacruz at [place]. She returned to the hospital once prior to this due to
migraine s/p lumbar puncture. She was treated with reglan with resolution of her symptoms. Patient reports that since hospital discharge, her symptoms have returned and worsened. Her left head, left 4th and 5th fingers, and left toes feel tingly.
Her left posterior eye muscles have a straining sensation. She also notes significant dizziness when she spends 5+ minutes outside. She also notes photo/phonophobia. She was having urinary frequency/retention last week, that has now resolved. She
denies any vision changes, speech/swallow difficulty, and weakness. She returns to the ER today due to being told to return if her symptoms returned.
Past Medical History: Bipolar disorder, L ACL tear- decreased L toussaint sensation
Surgical History: L ACL repair x2, wisdom teeth removal, dental implant
Family History: Reviewed and noncontributory.
Social History: Denies tobacco, alcohol, and illicit drug use.
Allergies: No known allergies.
Home Medications: See below.
Review of Symptoms:
Patient denies any fever, headache, chest pain, shortness of breath, GI or symptoms.
�Per the HPI.�All systems are reviewed negative except above.
Physical Exam:
The patient is afebrile, abdomen is nondistended, breathing is unlabored, skin is warm and dry, no edema.
Neurologic Examination:
The patient is awake, alert and oriented x 3. She is able to follow commands and answer questions appropriately. There is no aphasia or dysarthria. On cranial nerve assessment, pupils are 3 mm bilateral, round and reactive to light and
accommodation. Visual dash are full. Extraocular movements are intact. Facial sensations are intact and bilaterally symmetrical, there is no facial asymmetry. Hearing is intact bilaterally to normal conversation volume. Tongue palate and uvula are
midline. Sternocleidomastoid strengths are full bilaterally. Motor strengths are 5/5 bilateral upper and lower extremities on medical research [place] scale. There is no drift or involuntary movement noted. Deep tendon reflexes are 2+ bilateral
upper and lower extremities and Babinski is absent bilaterally. Sensations of touch, temperature and vibration are intact and bilaterally symmetrical. There was no extinction noted on double simultaneous stimulation. Coordination is intact by finger
to nose bilaterally.
Lab Results: See below.
Neuro Imaging:
1. MRI Brain 03/20/25: Subtle increased STIR signal and enhancement involving the left optic nerve, suggestive of the given clinical diagnosis of the left optic neuritis. The rest of the brain has a normal MR appearance. No evidence for another focal
area of demyelination or abnormal enhancement.
2. MRI Cervical Spine 03/21/25: There is no abnormal cord signal or enhancement of the cervical spine. There is multilevel mild disc degeneration with a small annular fissure of C5-C6. There is no significant spinal canal or neuroforaminal narrowing.
3. MRI Thoracic Spine 03/21/25: There is no abnormal signal or enhancement within the thoracic spinal cord. There is no significant spinal canal or neuroforaminal stenosis.
4. CSF: WBC 3, glucose 96, protein 55, negative oligoclonal bands.
Differentials for the patient's presentation include:
1. Low ferritin level, 19, likely producing patient's current symptomatology.
2. Left optic neuritis; clinically isolated syndrome.
3. Valproic acid level is normal.
4. Vitamin B12 level is borderline low.
Patient has the following risk factors for their symptoms: Optic neuritis
Recommendations:
-Provide IV iron x1 now. Continue daily oral iron supplement at bedtime.
-Patient should have a repeat ferritin level checked as an outpatient.
-Start cyanocobalamin 1000mcg PO daily. B12 level is 388, goal is >400.
-Follow-up with MS Specialist at [place] as scheduled.
Discussed patient care with: Dr. Pettit, the patient, patient's mother
Medications
-
Home Medications
�Medication �Instructions �Recorded
cranberry fruit 450 mg tablet 450 mg PO DAILY Supplement 03/20/25
(cranberry)
divalproex 500 mg tablet,extended 500 mg PO QPM Mental Health/Anxiety 03/20/25
release 24 hr
ferrous sulfate 325 mg (65 mg 325 mg PO DAILY Supplement 03/20/25
iron) tablet
lemon balm 500 mg capsule 250 mg PO DAILY Supplement 03/20/25
omega-3 fatty acids-fish oil 684 1 cap PO DAILY Supplement 03/20/25
mg-1,200 mg capsule,delayed release
metoclopramide HCl 10 mg tablet 10 mg PO Q8H nausea #9 tabs 03/25/25
(Reglan)
Vital Signs and Labs
-
Vital Signs and Labs:
Vital Signs
Temp Pulse Resp BP Pulse Ox
98.2 F 46 18 118/64 100
03/29/25 09:15 03/29/25 09:15 03/29/25 09:15 03/29/25 09:15 03/29/25 09:15
Lab Results
03/29/25 04:50
03/29/25 04:50
Sodium Cancelled 03/29/25 04:50
Potassium Cancelled 03/29/25 04:50
BUN Cancelled 03/29/25 04:50
Glucose Cancelled 03/29/25 04:50
Calcium Cancelled 03/29/25 04:50
Vitamin B12 388 pg/ml (378-042) 03/29/25 08:09
[2025-03-29 09:56] LABS: Ferritin 19.7 ng/ml (6.24-137)
[2025-03-29 10:27] LABS: Folate 16.2 ng/ml (2.76-20); Vitamin B12 388 pg/ml (239-931)
[2025-03-31 09:00] LABS: ANA, IgG Reflex to HEp-2 None Detected (None Detected)
--- NOTE | 2025-04-01 16:04 | CON.NEURO ---
Consultation
Order
Date of Consultation: 04/01/25
Requesting Provider:
Reason for Consult:
Neurology Consultation Note.
HPI:Ms. Gregg presents with worsening neurological symptoms including numbness, tingling, weakness, and cognitive issues.
According to the patient on March 20, she began experiencing tingling in her left hand, which has now spread to both hands and feet. The tingling is described as painful and intermittent. She also reports dizziness lasting up to 6 hours during
flare-ups.
On March 29 and , she experienced severe episodes where she was unable to walk and had to be carried. These episodes lasted approximately 8 hours, with lingering weakness afterward. During these flare-ups, she experiences intense head pain,
described as a dull pressure lasting for hours, accompanied by nausea and stomach churning. The episodes typically begin with weakness in her legs and arms, followed by tingling, numbness, and then the headache. Tylenol provides little relief for
severe pain.
The patient reports cognitive issues, including memory problems and difficulty following conversations. Her left eye symptoms have mostly resolved, with occasional pressure. She also experienced numbness in her shoulder and chest, along with
breathing difficulties, which prompted an MRI. Earlier in March, she had urinary retention, which has since resolved.
The patient was seen at [facility] ER on March 30, where she was switched from Lyrica to gabapentin.
Social History
- Substance Use: Denies smoking or vaping. Drinks coffee occasionally.
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 Currently not working due to symptoms.
ER VS:WNL
PDMP:Pregabalin 50 Mg 20 capsules filled in on 03/29/2025.
Labs: CSF (03/22/2025)�OCB�negative.
Labs: Negative ALLA, Lyme, vitamin B12, TSH.
Brain MRI w/wo reggie(03/20/2025) subtle increased STIR signal and enhancement involving the left optic nerve.
C/T spine MRI w/wo reggie(03/21/2025) There is no abnormal cord signal or enhancement of the cord.
PMH: L optic neurotis, Bipolar II DO, REGGIE, MDD, iron deficiency
PSH: Left ELIANA repair, wisdom tooth extraction
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
FH: No history of PUMP ATTENDANT demyelinating disease
All:NKDA
Review of Systems
General: Positive for weakness, dizziness.
HEENT: Positive for headache, occasional eye pressure. Negative for vision changes.
Gastrointestinal: Positive for constipation, nausea during severe flare-ups.
Genitourinary: Negative for urinary retention.
Musculoskeletal: Positive for weakness in legs and arms.
Neurological: Positive for numbness and tingling in hands and feet, cognitive issues including memory problems.
Psychiatric: Positive for bipolar disorder.
General: Well developed. In no acute distress.
Cardio: Regular rate and rhythm without murmur. Extremities are without cyanosis or edema.
Neuro:
Mental Status: Alert, oriented to person, place, and date. Normal attention and recall. Good fund of knowledge. Follows complex requests across the midline. Comprehension, naming, and repetition intact. Anxious mood
Cranial Nerves: Pupils are equally round and reactive to light. EOMs full. Visual dash full to confrontation. No ptosis. No nystagmus. V1-V3 intact to light touch and pinprick bilaterally, symmetric. Face symmetric. Normal hearing AU. The
palate elevated well. SCMs and traps 5/5. Tongue midline. No dysarthria.
Motor: Normal bulk and tone. No pronator or arm drift. Strength 5/5 throughout. No clonus.
Reflexes: 2+ throughout the upper extremities and knees. 2/2 in AJs. Plantar responses flexor bilaterally.
Sensory: Normal vibration and JPS.
Coordination: No dysmetria or tremor.
Gait: Normal stance, base, stride. Able to tandem and jump on each foot.
Assessment and Plan:
I. History of left optic neuritis.
II. Generalized paresthesias
III. Recurrent spells of motor dysfunction. Neuroexam is nonfocal.
- Fall precautions
- Start event calendar
- Please check ESR, CRP
- IV Toradol 30 mg, Reglan 10 mg, Benadryl 25 mg Q8h PRN for moderate to severe headache.
- OP neuro-ophthalmology consult
- OP VEP.
- Consider decreasing Lyrica dose given constipation
- Effective contraception was discussed in view of Depakote therapy
-Follow-up NMO ab
- No neuroimages are warranted at this time
- Psychiatry consult
- Outpatient neurology follow-up.
- The case was discussed with patient's mother, present at bedside.
I personally reviewed all radiology and labs along with past medical records pertinent to current medical problems. Total time spent in patient care is 60 minutes.
Thank you for allowing us to participate in the care of this patient. Please do not hesitate to contact us with any questions or concerns.
Subjective/Objective
Subjective Data
Date of Service: April 01, 2025
Objective Data
Vital Signs
Temp Pulse Resp BP Pulse Ox
36.8 C 46 18 118/64 100
03/29/25 09:15 03/29/25 09:15 03/29/25 09:15 03/29/25 09:15 03/29/25 09:15
Lab Results
03/29/25 04:50
03/29/25 04:50
Sodium Cancelled 03/29/25 04:50
Potassium Cancelled 03/29/25 04:50
BUN Cancelled 03/29/25 04:50
Glucose Cancelled 03/29/25 04:50
Calcium Cancelled 03/29/25 04:50
Vitamin B12 388 pg/ml ([phone]) 03/29/25 08:09
Patient Allergies
No Known Allergies Allergy (Verified 04/01/25 12:58)
Medications
-
Home Medications
�Medication �Instructions �Recorded
cranberry fruit 450 mg tablet 450 mg PO DAILY Supplement 03/20/25
(cranberry)
divalproex 500 mg tablet,extended 500 mg PO QPM Mental Health/Anxiety 03/20/25
release 24 hr
ferrous sulfate 325 mg (65 mg 325 mg PO DAILY Supplement 03/20/25
iron) tablet
lemon balm 500 mg capsule 250 mg PO DAILY Supplement 03/20/25
omega-3 fatty acids-fish oil 684 1 cap PO DAILY Supplement 03/20/25
mg-1,200 mg capsule,delayed release
metoclopramide HCl 10 mg tablet 10 mg PO Q8H nausea #9 tabs 03/25/25
(Reglan)
pregabalin 50 mg capsule (Lyrica) 50 mg PO BID #20 caps 03/29/25
Vital Signs and Labs
-
Vital Signs and Labs:
Vital Signs
Temp Pulse Resp BP Pulse Ox
36.8 C 46 18 118/64 100
03/29/25 09:15 03/29/25 09:15 03/29/25 09:15 03/29/25 09:15 03/29/25 09:15
Lab Results
03/29/25 04:50
03/29/25 04:50
Sodium Cancelled 03/29/25 04:50
Potassium Cancelled 03/29/25 04:50
BUN Cancelled 03/29/25 04:50
Glucose Cancelled 03/29/25 04:50
Calcium Cancelled 03/29/25 04:50
Vitamin B12 388 pg/ml (445-362) 03/29/25 08:09
Home Medications
-
Home Medications
cranberry fruit 450 mg tablet (cranberry) 450 mg PO DAILY Supplement 03/20/25
divalproex 500 mg tablet,extended release 24 hr 500 mg PO QPM Mental Health/Anxiety 03/20/25
ferrous sulfate 325 mg (65 mg iron) tablet 325 mg PO DAILY Supplement 03/20/25
lemon balm 500 mg capsule 250 mg PO DAILY Supplement 03/20/25
omega-3 fatty acids-fish oil 684 mg-1,200 mg capsule,delayed release 1 cap PO DAILY Supplement 03/20/25
metoclopramide HCl 10 mg tablet (Reglan) 10 mg PO Q8H nausea #9 tabs 03/25/25
pregabalin 50 mg capsule (Lyrica) 50 mg PO BID #20 caps 03/29/25
== END 2025-03-29 10:56 | disposition home or self-care (01) ==
LOC: EMR 01:24
PROVIDERS: CONSULT PHYSICIAN Psychiatry & Neurology Neurology; EMERGENCY PHYSICIAN Emergency Medicine; FAMILY PHYSICIAN Family Medicine
DX: H46.9 Unspecified optic neuritis (principal); R20.2 Paresthesia of skin; F31.9 Bipolar disorder, unspecified; F17.200 Nicotine dependence, unspecified, uncomplicated; Z79.899 Other long term (current) drug therapy
CPT/HCPCS: 99283; 80048; 80164; 82607; 82728; 82746; 84443; 85025; 86038; 93005; J2916

== ENCOUNTER 2025-03-29 14:45 | Emergency (ER) | payer BC, SELFPAY ==
[2025-03-29 14:45] VITALS: BMI 20.5
[2025-03-29 14:57] VITALS: BP 119/78
[2025-03-29 16:00] VITALS: BP 119/71
--- NOTE | 2025-03-29 16:42 | ED.GENMED ---
History of Present Illness
<Shahida Soto PA-C - Last Filed: 03/30/25 02:00>
General
Chief Complaint: Weakness
Source: patient
Exam Limitations: none
Time Seen by Provider: 03/29/25 16:08
Nursing documentation reviewed up to this point in time: agreed with
History of Present Illness
History of Present Illness:
Patient is a 29-year-old female with history as documented presenting to the emergency department via EMS for evaluation of paresthesias. She describes feeling a tingling sensation in her hands and feet as well as a 'coolness' sensation in her
head. She describes significant weakness leading to difficulty ambulating. She also reports feeling as if she could not get a deep breath.
Patient denies any severe headache or neck pain. No fevers or chills. No double vision or blurry vision. No nausea, vomiting, or abdominal pain. No chest pain
Patient was seen in the emergency department this morning and discharged home after neurology evaluation. Her parents state that 'a nurse' called them stating that her iron levels were low and she would require an iron infusion. Given concern of
low iron as well as persistent symptoms and weakness�they called 911 for transport back to the emergency department.
Patient was started on Lyrica by neurology this morning and took her first dose when she arrived home this morning.
Patient is scheduled to see [facility] neurology on April 03.
Past History
<Shahida Soto PA-C - Last Filed: 03/30/25 02:00>
Past History
ED Past Medical History: Psychiatric
ED Past Surgical History: Orthopedic
Social History
Tobacco: Non-smoker
Alcohol: None
Drug: None
Personal: Single
Living: with family
Employment: Employed
Family History
Family History: Other (Noncontributory)
Review of Systems
<Shahida Soto PA-C - Last Filed: 03/30/25 02:00>
Review of Systems
Allergies reviewed?: Yes
All Other Systems: ROS reviewed and negative except as documented in HPI and ROS
Phy Exam
<Shahida Soto PA-C - Last Filed: 03/30/25 02:00>
Physical Exam
Physical Exam:
Vitals: Patient's vital signs are stable. Afebrile
General: Patient is well appearing, no acute distress. Nontender
Skin: Warm and dry, no rashes or lesions
Head: Normocephalic, atraumatic
Eyes: Sclera nonicteric. EOMs intact. No nystagmus.
Throat: Protecting airway
Neck: Normal ROM, no cervical spine tenderness, no meningismus
Cardiac: Regular rate and rhythm, no murmurs.
Pulm: Normal respiratory effort, no wheezes, rales, rhonchi heard on exam
.
Abdomen: Abdomen soft and nontender.
Extremities: No evidence of cyanosis or edema
Neuro: AAOx3. CN II-XII grossly intact. Sensation intact bilaterally to fine touch. Fluid speech. No focal neurologic deficits.
Psychiatric: Normal affect.
Course
<Shahida Soto PA-C - Last Filed: 03/30/25 02:00>
Orders/Labs/Results
Orders:
Orders
03/29/25 14:51
EKG [Electrocardiogram (*1)] Urgent
Reason for Study: Shortness of Breath
03/29/25 14:52
EKG- Treatment ONCE
03/29/25 17:01
Basic Metabolic Panel Urgent
Complete Blood Count/With Diff Urgent
03/29/25 17:55
Ferric Gluconate [Ferrlecit] 125 mg 0.9% Sodium Chloride 100 ml [Nss] 100 ml IV NOW
03/30/25 14:00
Ferric Gluconate [Ferrlecit] 125 mg 0.9% Sodium Chloride 100 ml [Nss] 100 ml IV ONCE@1400
Abnormal Lab Results
03/29/25
17:01
MCV 80.6 L fL
(81.0-99.0)
MCH 26.5 L pg
(27.0-31.0)
MCHC 32.8 L g/dL
(33.0-37.0)
RDW 17.8 H %
(11.5-14.5)
MPV 11.3 H fL
(7.4-10.4)
Glucose 114 H mg/dl
(70-99)
03/29/25 17:01
03/29/25 17:01
Vital Signs
Initial and Last Documented VS:
Initial Vital Signs
Temp Pulse Resp BP Pulse Ox
99.1 F 71 16 119/78 100
03/29/25 14:57 03/29/25 14:57 03/29/25 14:57 03/29/25 14:57 03/29/25 14:57
Last Documented Vital Signs
Temp Pulse Resp BP Pulse Ox
98.7 F 60 18 116/57 100
03/29/25 20:44 03/29/25 20:44 03/29/25 20:44 03/29/25 20:44 03/29/25 20:44
<Lissa Perry MD - Last Filed: 03/29/25 17:40>
Orders/Labs/Results
Orders:
Orders
03/29/25 14:51
EKG [Electrocardiogram (*1)] Urgent
Reason for Study: Shortness of Breath
03/29/25 14:52
EKG- Treatment ONCE
03/29/25 17:01
Basic Metabolic Panel Urgent
Complete Blood Count/With Diff Urgent
03/29/25 17:55
Ferric Gluconate [Ferrlecit] 125 mg 0.9% Sodium Chloride 100 ml [Nss] 100 ml IV NOW
03/30/25 14:00
Ferric Gluconate [Ferrlecit] 125 mg 0.9% Sodium Chloride 100 ml [Nss] 100 ml IV ONCE@1400
Abnormal Lab Results
03/29/25
17:01
MCV 80.6 L fL
(81.0-99.0)
MCH 26.5 L pg
(27.0-31.0)
MCHC 32.8 L g/dL
(33.0-37.0)
RDW 17.8 H %
(11.5-14.5)
MPV 11.3 H fL
(7.4-10.4)
Glucose 114 H mg/dl
(70-99)
03/29/25 17:01
03/29/25 17:01
Vital Signs
Initial and Last Documented VS:
Initial Vital Signs
Temp Pulse Resp BP Pulse Ox
99.1 F 71 16 119/78 100
03/29/25 14:57 03/29/25 14:57 03/29/25 14:57 03/29/25 14:57 03/29/25 14:57
Last Documented Vital Signs
Temp Pulse Resp BP Pulse Ox
98.7 F 60 18 116/57 100
03/29/25 20:44 03/29/25 20:44 03/29/25 20:44 03/29/25 20:44 03/29/25 20:44
<Shahida Soto PA-C - Last Filed: 03/30/25 02:00>
MDM/Problems Addressed
Differential Diagnosis Includes:
Not limited to: Symptomatic anemia, vitamin B12 deficiency, iron deficiency, electrolyte imbalance, panic attack, etc.
MDM/Problems Addressed:
29-year-old female presenting with multiple vague symptoms including paresthesias in extremities, weakness, coolness sensation in head. No history of syncopal event. Patient seen and evaluated in emergency department multiple times over the past
week with extensive workup with neurology including MRI, lumbar puncture, etc. Diagnosis of likely isolated optic neuritis made which was treated with steroids. Low suspicion for MS at this time. Most recent neurology consult was earlier this
morning in ED without concern for acute neurologic process however concern for possible iron deficiency. Patient was discharged home at that time with instruction to follow-up outpatient.
Patient's vitals as above. On exam�patient appears anxious although nontoxic. She has no focal neurologic deficits noted and intact sensation bilaterally. Normal cerebellar exam. Cardio/pulmonary assessment unremarkable.
Do not suspect acute neurologic process today. Basic labs sent which revealed no evidence of anemia. Electrolytes within normal limits. Iron studies sent this morning show ferritin at lower end of normal limit. Case was discussed with neurology,
as they already saw patient this morning, who recommends IV iron transfusion and discharge home. No indication for acute neurologic process.
Update: Patient was transfused IV iron in emergency department. On reassessment that she remains well-appearing, in no apparent distress. She states her symptoms have improved and she is ambulating around room without difficulty. At this
point�feel stable for discharge home with outpatient neurology follow-up. Patient and patient's mom comfortable with plan.
Chronic conditions affecting care:
N/A
Acute Exacerbation and/or Progression of Chronic Illness:
N/A
<Shahida Soto PA-C - Last Filed: 03/30/25 02:00>
*Pulse Oximetry
SaO2: 100
Oxygen Mode of Delivery: Room air
Patient hypoxic: no
*EKG
Interpreted by ED Provider?: NA
*Dresser Tender Interpretation
Rate: Dresser Tender- N/A
*Critical Care Note
Total Time (30-74mins, 75-104mins- exclusive of procedures): Not Applicable
Data Reviewed
Review of Other/Old Records Reveals: Discharge Summary (Discharge summary from ED 03/29/2025 following neurology consult)
<Shahida Soto PA-C - Last Filed: 03/30/25 02:00>
Patient Management
Discussion with other providers: Time Checker (Case discussed with neurology)
ED Attending Note
<Shahida Soto PA-C - Last Filed: 03/30/25 02:00>
-
Portions of this chart may have been created with voice recognition software.� Occasional wrong word or��sound alike� substitutions may have occurred due to the inherent limitations of voice recognition software.
<Lissa Perry MD - Last Filed: 03/29/25 17:40>
ED Attending Note
Patient seen and examined by attending physician: Yes
I performed the substantive portion of visit, reviewed & personally made and approve the management plan that is documented in note by myself or MADI.: Yes
ED Attending Note:
29-year-old female presents to the emergency department with a variety of different complaints including tingling in her feet and fingers feeling like her fingers were cold, and generally weak. Patient has been to the emergency department and
hospitalized for similar symptoms with an essentially unremarkable with the exception of possibly optic neuritis which was treated with prednisone. She was seen as recently as this morning and started on Lyrica. Patient also take Depakote and
Risperdal. Currently she states she feels much better. She denies chest pain, shortness of breath, abdominal pain, nausea, vomiting, fever, chills, double vision, blurry vision, visual complaints, numbness, focal weakness, or other complaints. On
exam, pupils equal round reactive to light, EOMI, no nystagmus, no photophobia. Cranial nerves II through XII intact, [id number] normal, motor 5 out of 5, sensory intact. Heart regular rate and rhythm, lungs CTA. Our PA discussed with
neurology, Dr. Pettit, who saw her today. Aware of her labs and recommends an iron transfusion here in the emergency department and discharged home with close outpatient follow-up.
Discharge Plan
Departure
Patient Disposition: Home (Routine Discharge)
Date of Disposition: 03/29/25
Time of Disposition: 20:56
Patient with high blood pressure during this ER visit?: No
Discharge Problem:
Paresthesia
Instructions: Generalized Weakness (DC), Paresthesia (DC)
Prescriptions:
No Action
ferrous sulfate 325 mg (65 mg iron) Tablet
325 mg PO DAILY
divalproex 500 mg Tablet Extended Release 24 Hr
500 mg PO QPM
omega-3 fatty acids-fish oil 684-1,200 mg Capsule,Delayed Release(Dr/Ec)
1 cap PO DAILY
cranberry 450 mg Tablet
450 mg PO DAILY
lemon balm 500 mg Capsule
250 mg PO DAILY
metoclopramide HCl [Reglan] 10 mg tablet
10 mg PO Q8H Qty: 9 0RF
pregabalin [Lyrica] 50 mg capsule
50 mg PO BID Qty: 20 0RF
Referrals:
NONE,* [Active, Internal Medicine]
Activity Restrictions/Additional Instructions:
RETURN TO THE EMERGENCY DEPARTMENT WITH ANY CHEST PAIN, SHORTNESS OF BREATH, NUMBNESS/TINGLING OR WEAKNESS, WORSENING OF CURRENT SYMPTOMS, OR ANY OTHER CONCERNS
- As discussed�your lab work obtained in the emergency department showed no acute abnormalities. Your hemoglobin was normal indicating that you are not anemic. Your ferritin level was at the lower end of normal. You did receive an iron infusion
today in the emergency department.
- Stay well-hydrated.
- Take medications as prescribed. Taking Lyrica and risperidone together may cause an increase in dizziness, lightheadedness.
- Follow-up with [facility] as scheduled on 04/03/2025.
Monitor your symptoms closely and return to the emergency department with any acute worsening/new symptoms or any other concerns
Interventions
Interventions:
*Risk Screen - Suicide Last Done: 03/29/25 14:57
*General Assessment Last Done: 03/29/25 17:51
*Neglect/Abuse Screening Last Done: 03/29/25 14:57
*ED- Fall Risk Assessment Last Done: 03/29/25 17:51
*ED COVID-19 Vaccine History Last Done: 03/29/25 14:57
*Nursing Disposition Last Done: 03/29/25 21:10
ED- Cardiac Assessment Last Done: 03/29/25 17:33
ED- Neurological Assessment Last Done: 03/29/25 17:33
ED- Pulmonary Assessment Last Done: 03/29/25 17:33
Discharge Date and Time
Discharge Date/Time: 03/29/25 21:12
Print Language: BULGARIAN
[2025-03-29 17:08] LABS: Hematocrit 40.8 % (37.0-47.0); Hemoglobin 13.4 g/dL (12.0-16.0); Mean Corp Hgb Conc. 32.8 g/dL (33.0-37.0); Mean Corpuscular Volume 80.6 fL (81.0-99.0); Nucleated Red Blood Cells % 0 %; Platelet Count 243 10^3/uL (130-400); Red Cell Dist. Width 17.8 % (11.5-14.5)
[2025-03-29 17:24] LABS: Blood Urea Nitrogen 17 mg/dl (7-17); Calcium 9.5 mg/dl (8.4-10.2); Carbon Dioxide 23 mmol/L (22-30); Chloride 106 mmol/L (98-107); Glucose 114 mg/dl (70-99); Sodium 136 mmol/L (135-145); eGFR > 60.00
[2025-03-29] MEDS: FERRLECIT 110 MG IV (19:41)
[2025-03-29 20:44] VITALS: BP 116/57
== END 2025-03-29 21:12 | disposition home or self-care (01) ==
LOC: EMR 14:45
PROVIDERS: Physician Assistant; EMERGENCY PHYSICIAN Emergency Medicine; FAMILY PHYSICIAN Family Medicine
DX: R20.2 Paresthesia of skin (principal); Z79.899 Other long term (current) drug therapy
CPT/HCPCS: 99283; 96374; 80048; 85025; 93005; J2916

== ENCOUNTER 2025-04-01 12:55 | Emergency (ER) | payer BC, SELFPAY ==
[2025-04-01 12:58] VITALS: BP 113/69
--- NOTE | 2025-04-01 15:41 | ED.GENMED ---
History of Present Illness
<Wesly Cortes PA-C - Last Filed: 04/01/25 16:52>
General
Chief Complaint: Weakness
Source: patient, records and family
Time Seen by Provider: 04/01/25 15:04
History of Present Illness
History of Present Illness:
29-year-old female with a recent past medical history of optic neuritis with suspicion for possible MS, clinically isolated syndrome and chronic bipolar disorder maintained on echo who presents back to the emergency department for the fifth time
here since March 20 and 1 other visit at [facility] emergency department for continued generalized weakness to bilateral upper and lower extremities, difficulty ambulating, brain fog and difficulty concentrating. Patient had extensive workup at this
facility with a inpatient admission with MRI showing a left optic neuritis, unremarkable lumbar puncture and lab work. Patient's mother states she did very well for about 5 days following IV steroid but was not given a prescription for this, has
not had any relief with Lyrica. Patient has an appointment scheduled with neurologist, Dr. Santacruz, at the [facility] this coming Wednesday but mother felt that symptoms were too severe and patient could not wait for this appointment
and ultimately came to the ER in search of the patient being started on steroids until she can get to the appointment with neurology on Wednesday. No new symptoms, fevers or infectious symptoms. Mother did state that patient fell today due to the
weakness and had to get the patient up off the ground.
Past History
<Wesly Cortes PA-C - Last Filed: 04/01/25 16:52>
Past History
ED Past Medical History: Psychiatric
ED Past Surgical History: Orthopedic
Social History
Tobacco: Non-smoker
Alcohol: None
Drug: None
Personal: Single
Living: with family
Employment: Employed
Family History
Family History: Other (Noncontributory)
Review of Systems
<Wesly Cortes PA-C - Last Filed: 04/01/25 16:52>
Review of Systems
All Other Systems: ROS reviewed and negative except as documented in HPI and ROS
Phy Exam
<Wesly Cortes PA-C - Last Filed: 04/01/25 16:52>
Physical Exam
Physical Exam:
GENERAL: Alert , in no apparent distress
HEAD: Normocephalic atraumatic
EYE: pupils equal and reactive, extraocular movements intact, 3 mm bilateral
NECK: Supple
ENT: o/p clr, mmm.
CARDIAC: Regular rate and rhythm, no murmur.
LUNGS: Clear breath sounds bilaterally, no acute respiratory distress, no wheezes/rales/rhonchi
ABDOMEN: Soft, without focal tenderness, no r/g, no cvat
NEUROLOGICAL: Alert and oriented, generally weak but intact and equal strength bilateral, no hyper or hyporeflexia, sensory intact to light touch throughout
SKIN: Warm and dry, skin intact.
MUSCULOSKELETAL: No edema, well perfused.
PSYCH: Normal and appropriate interaction. But somewhat flat affect
Scores
<Wesly Cortes PA-C - Last Filed: 04/01/25 16:52>
Heart Failure Risk
Heart Failure Risk Score: Not Applicable
Heart Score for Chest Pain Patients
STEMI patient?: Not applicable
Withdrawal Assessment of Alcohol
Withdrawal Assessment Completed?: Not applicable
Course
<Wesly Cortes PA-C - Last Filed: 04/01/25 16:52>
Orders/Labs/Results
Orders:
Orders
04/01/25 17:41
Prednisone [Deltasone] 40 mg PO NOW STA
Vital Signs
Initial and Last Documented VS:
Initial Vital Signs
Temp Pulse Resp BP Pulse Ox
98.0 F 56 18 113/69 100
04/01/25 12:58 04/01/25 12:58 04/01/25 12:58 04/01/25 12:58 04/01/25 12:58
Last Documented Vital Signs
Temp Pulse Resp BP Pulse Ox
98.0 F 56 18 113/69 100
04/01/25 12:58 04/01/25 12:58 04/01/25 12:58 04/01/25 12:58 04/01/25 15:47
<Conor Miller DO - Last Filed: 04/01/25 17:44>
Orders/Labs/Results
Orders:
Orders
04/01/25 17:41
Prednisone [Deltasone] 40 mg PO NOW STA
Vital Signs
Initial and Last Documented VS:
Initial Vital Signs
Temp Pulse Resp BP Pulse Ox
98.0 F 56 18 113/69 100
04/01/25 12:58 04/01/25 12:58 04/01/25 12:58 04/01/25 12:58 04/01/25 12:58
Last Documented Vital Signs
Temp Pulse Resp BP Pulse Ox
98.0 F 56 18 113/69 100
04/01/25 12:58 04/01/25 12:58 04/01/25 12:58 04/01/25 12:58 04/01/25 15:47
<Wesly Cortes PA-C - Last Filed: 04/01/25 16:52>
MDM/Problems Addressed
Differential Diagnosis Includes:
Optic neuritis/MS
I do not have concern for infectious etiology especially in the setting of recent lumbar puncture concern for meningitis or encephalitis is much less likely
Less suspicion for any acute intracranial bleeding or masses given recent imaging although it was noted that patient did fall today but there was no reported head strike or loss of consciousness or current headache
Conversion disorder/psychiatric related medical complication
MDM/Problems Addressed:
29-year-old female presenting to the emergency department for the sixth time this month for continued weakness, clinical concern for MS, has an appoint with neurologist at [facility] who specializes in MS in 2 days. Patient's mother
requesting patient be given steroid. Given patient has had multiple ER visits and neurology here did not recommend steroid as well as primary care provider did not wish to give a steroid I do have some hesitancy to prescribe this without neurology
weighing in for discussion with patient's neurologist at the [facility]. Will contact neurology here for consult as well as call placed to [facility] neurology team to discuss. Disposition pending.
Chronic conditions affecting care: Neurological disorder (Recent diagnosis of optic neuritis on the left)
<Wesly Cortes PA-C - Last Filed: 04/01/25 16:52>
*Pulse Oximetry
SaO2: 100
Oxygen Mode of Delivery: Room air
Patient hypoxic: no
*Master Dyer Interpretation
Rate: normal
Heart Rate: 75
Rhythm: sinus
Data Reviewed
Review of Other/Old Records Reveals: Labs, Records, Radiology Studies and Discharge Summary
<Conor Miller DO - Last Filed: 04/01/25 17:44>
*Critical Care Note
Total Time (30-74mins, 75-104mins- exclusive of procedures): Not Applicable
<Wesly Cortes PA-C - Last Filed: 04/01/25 16:52>
Patient Management
Discussion with other providers: Nut Roaster Helper
Escalation/DeEscalation of care consider admission/obs:
Patient seen by neuro here. Concern for possible underlying psychiatric related complication. Patients clinical presentation today and symptoms from previous days reviewed and does not seem to fit clinical picture for optic neuritis. Patient seen
ambulating in ED unassisted without any focal deficits. Neuro does no recommend starting steroids at this time.
Spoke to neuro call center at [facility] who states that because patient has not been evaluated at their facility they were not willing to discuss case/make recommendations and patient would need to wait for appointment on April 03. Dr. Miller to see
patient/speak to patient/mother
ED Attending Note
<Wesly Cortes PA-C - Last Filed: 04/01/25 16:52>
-
Portions of this chart may have been created with voice recognition software.� Occasional wrong word or��sound alike� substitutions may have occurred due to the inherent limitations of voice recognition software.
<Conor Miller DO - Last Filed: 04/01/25 17:44>
ED Attending Note
Patient seen and examined by attending physician: Yes
I performed a history and physical exam of patient and discussed management with resident, I reviewed resident's note and agree with documented findings and plan of care.: Yes
ED Attending Note:
Seen with PA 4th or 5th ER visit with a variety complaints extensive workup Miguel Ángel Mendoza to see a MS specialist in 2 days at [facility] patient and family are pretty insistent that they get some steroids consistent with thing that helps she
apparently gets the spells where she becomes globally weak she is afraid she is getting another 1
My evaluation she is sitting upright reading a book, I saw her ambulate earlier with the neurologist
Discharge Plan
Departure
Patient Disposition: Home (Routine Discharge)
Date of Disposition: 04/01/25
Time of Disposition: 17:43
Patient with high blood pressure during this ER visit?: No
Discharge Problem:
Weakness, Paresthesia
Instructions: Generalized Weakness (DC)
Prescriptions:
New
methylprednisolone [Medrol (David)] 4 mg tablets,dose pack
See Rx Instructions .ROUTE .COMPLEX Qty: 21 0RF
Rx Instructions:
for 6 days
No Action
ferrous sulfate 325 mg (65 mg iron) Tablet
325 mg PO DAILY
divalproex 500 mg Tablet Extended Release 24 Hr
500 mg PO QPM
omega-3 fatty acids-fish oil 684-1,200 mg Capsule,Delayed Release(Dr/Ec)
1 cap PO DAILY
cranberry 450 mg Tablet
450 mg PO DAILY
lemon balm 500 mg Capsule
250 mg PO DAILY
metoclopramide HCl [Reglan] 10 mg tablet
10 mg PO Q8H Qty: 9 0RF
pregabalin [Lyrica] 50 mg capsule
50 mg PO BID Qty: 20 0RF
Referrals:
Timi Faust MD [Family Provider]
Interventions
Interventions:
*Risk Screen - Suicide Last Done: 04/01/25 12:58
*General Assessment Last Done: 04/01/25 12:58
*Neglect/Abuse Screening Last Done: 04/01/25 12:58
*ED- Fall Risk Assessment Last Done: 04/01/25 13:45
*ED COVID-19 Vaccine History Last Done: 04/01/25 13:45
ED- Cardiac Assessment Last Done: 04/01/25 13:45
ED- Neurological Assessment Last Done: 04/01/25 13:45
ED- Pulmonary Assessment Last Done: 04/01/25 13:45
Discharge Date and Time
Print Language: BANGLADESHI
[2025-04-01] MEDS: DELTASONE 40 MG PO (17:48)
[2025-04-01 17:51] VITALS: BP 130/71
== END 2025-04-01 17:56 | disposition home or self-care (01) ==
LOC: EMR 12:55
PROVIDERS: EMERGENCY PHYSICIAN Emergency Medicine; FAMILY PHYSICIAN Family Medicine
DX: R53.1 Weakness (principal); H46.9 Unspecified optic neuritis; R20.2 Paresthesia of skin
CPT/HCPCS: 99283

== ENCOUNTER 2025-04-02 04:42 | Observation (INO) | payer BC, SELFPAY ==
[2025-04-02] VITALS (7 sets, daily range): BP systolic 98–111; BP diastolic 48–73; PULSE 57–92; O2SAT 98–99; BMI 22.4
--- NOTE | 2025-04-02 04:20 | ED.GENMED ---
History of Present Illness
General
Chief Complaint: Weakness
Source: patient and previous hospital records
Exam Limitations: none
Time Seen by Provider: 04/02/25 03:17
Nursing documentation reviewed up to this point in time: agreed with
History of Present Illness
History of Present Illness:
This is a 29-year-old female with history of bipolar disorder, hospitalized briefly March 20 to March 22 for evaluation of left-sided paresthesias as well as left eye discomfort. MRI of the brain, cervical and thoracic spine were unremarkable save for
questionable mild optic neuritis. Lumbar puncture negative for bands. Symptoms improved with short course of IV steroids. She was diagnosed with clinically isolated syndrome and discharged home with plan for outpatient follow-up with neurology
with initial appointment at [facility] tomorrow.
Since that hospitalization patient has had multiple ED visits with several ED neurology consults including March 29 as well as yesterday afternoon when she presents with intermittent episodes of paresthesias, weakness, sensation of urinary retention.
Symptoms come and go and seem to be worsening with intermittent headache, dizziness, nausea.
Was started on Lyrica March 29. She was also given an IV dose of iron during ED visit March 30 due to low ferritin.
Was evaluated at [facility] ED on March 30. Unremarkable CT of the head. Lyrica was discontinued on the and changed to gabapentin.
During ED visit yesterday she was given an oral dose of prednisone, 40 mg primarily due to the insistence of patient and mother and discharged to home with Medrol Dosepak.
Patient mitts that she was feeling improved upon return home but then awoke this morning noting that she was incontinent of urine and had bilateral lower leg weakness and numbness and fell while attempting to get out of bed.
Currently feeling improved but continues with leg weakness left greater than right. She denies head injury, no headache, no neck or back pain.
Past History
Past History
ED Past Medical History: Psychiatric
ED Past Surgical History: Orthopedic
Social History
Tobacco: Non-smoker
Alcohol: None
Drug: None
Personal: Single
Living: with family
Employment: Employed
Family History
Family History: Other (Noncontributory)
Phy Exam
Physical Exam
Physical Exam:
GENERAL: 29-year-old female sleeping upon initial evaluation, easily awakens. Once awake she is alert and oriented x 3. Appears in no acute distress. Mother is accompanying.
EYE: pupils equal and reactive. anicteric
NECK: Supple, nontender, no meningismus, no significant adenopathy.
ENT: oral mucosa is moist. No rhinorrhea.
CARDIAC: Regular rate and rhythm. no murmur.
LUNGS: Clear breath sounds bilaterally, no acute respiratory distress, no wheezes/rales/rhonchi
ABDOMEN: Soft, nondistended, without focal tenderness, no r/g, no cvat. normoactive BS.
NEUROLOGICAL: Alert and oriented x3, questionable mild weakness left lower extremity. DTRs are symmetric. Toes are downgoing bilaterally. Gross sensation is intact.
SKIN: Warm and dry, normal color, skin intact. No rash.
MUSCULOSKELETAL: No C/C/E. peripheral pulses are full and equal b/l. No palpable tenderness.
PSYCH: Normal and appropriate interaction.
Course
Vital Signs
Initial and Last Documented VS:
Initial Vital Signs
Temp Pulse Resp BP Pulse Ox
98.4 F 72 16 110/64 100
04/02/25 01:02 04/02/25 01:02 04/02/25 01:02 04/02/25 01:02 04/02/25 01:02
Last Documented Vital Signs
Temp Pulse Resp BP Pulse Ox
98.4 F 72 16 110/64 100
04/02/25 01:02 04/02/25 01:02 04/02/25 01:02 04/02/25 01:02 04/02/25 04:22
MDM/Problems Addressed
Differential Diagnosis Includes:
Concern for stuttering neurologic symptoms related to new onset MS versus psychosomatic symptomatology.
With rapid progression albeit stuttering symptoms will admit to hospitalist service. To consider repeat neuroimaging this morning, repeat neurology consult as well as psychiatry consult.
Chronic conditions affecting care: Neurological disorder and Psychiatric illness
*Pulse Oximetry
SaO2: 100
Oxygen Mode of Delivery: Room air
Patient hypoxic: no
*Critical Care Note
Total Time (30-74mins, 75-104mins- exclusive of procedures): Not Applicable
ED Attending Note
-
Portions of this chart may have been created with voice recognition software.� Occasional wrong word or��sound alike� substitutions may have occurred due to the inherent limitations of voice recognition software.
Discharge Plan
Departure
Patient Disposition: Admit
Date of Disposition: 04/02/25
Time of Disposition: 04:02
Admit to: Med/Surg
Admit to doctor: George
Presentation/result/management discussed w/ accepting MD/DO: Hospitalist
Condition: Fair
Discharge Problem:
intermittent paresthesia and weakness
Prescriptions:
No Action
ferrous sulfate 325 mg (65 mg iron) Tablet
325 mg PO DAILY
divalproex 500 mg Tablet Extended Release 24 Hr
500 mg PO QPM
omega-3 fatty acids-fish oil 684-1,200 mg Capsule,Delayed Release(Dr/Ec)
1 cap PO DAILY
cranberry 450 mg Tablet
450 mg PO DAILY
lemon balm 500 mg Capsule
250 mg PO DAILY
metoclopramide HCl [Reglan] 10 mg tablet
10 mg PO Q8H Qty: 9 0RF
pregabalin [Lyrica] 50 mg capsule
50 mg PO BID Qty: 20 0RF
methylprednisolone [Medrol (David)] 4 mg tablets,dose pack
See Rx Instructions .ROUTE .COMPLEX Qty: 21 0RF
Rx Instructions:
for 6 days
Referrals:
Timi Faust MD [Family Provider]
Interventions
Interventions:
*Risk Screen - Suicide Last Done: 04/02/25 01:02
*Neglect/Abuse Screening Last Done: 04/02/25 01:02
*ED- Fall Risk Assessment Last Done: 04/02/25 01:02
*ED COVID-19 Vaccine History Last Done: 04/02/25 01:02
Discharge Date and Time
Print Language: GIBRALTARIAN
--- NOTE | 2025-04-02 04:39 | HPS.HSE ---
Family Physician
-
Family Physician: Timi Faust MD
Chief Complaint
-
Weakness, Headache, Incontinence
History of Present Illness
Patient is a 29y F with PMH significant for bipolar disorder and recent admission for L optic neuritis who presents to ED complaining of urinary incontinence and weakness. Patient has had multiple hospital visits since the beginning of the
month. She was initially seen and admitted on 03/20 with complaints of L sided numbness - mostly involving the face and upper extremity. She reported associated shortness of breath and occasional abdominal pain - mostly after eating. She was
hospitalized and diagnosed with L optic neuritis by exam (red desaturation) and MRI (subtle L optic nerve enhancement). She was treated with IV steroids and her symptoms seemed to improve. She also underwent L trapezius trigger point injection.
Patient was discharged to home on 03/22.
She returned to the ED on 03/25 with complaint of severe headache, urinary retention and heat intolerance. She was treated with IVFs and migraine cocktail and her symptoms improved.
She returned to the ED on 03/29 with complaint of L eye discomfort, left hand and left foot paresthesias. She was seen in the ED by Neurology. She received IV iron infusion for low ferritin and was started on Lyrica for symptom control.
She was seen in the ED at [facility] on 03/30 with complaints of generalized weakness, headache and paresthesias. Her Lyrica was changed to gabapentin - which patient states has worked better for her symptoms.
She returned to the ED here on 04/01 complaining of weakness of all extremities, difficulty ambulating and brain fog. She was again seen by Neurology in the ED. Patient was advised to keep her already scheduled appointment with [facility] specialist
(scheduled for 04/03). Additional steroids were not specifically recommended; however, patient received an initial dose of prednisone 40mg x 1 in the ED. She was prescribed a Medrol dose pack which she has yet to fill.
Patient returned home and went to sleep. She then woke in the middle of the night and noted that she had been incontinent of urine in her sleep. She again complained of headache and diffuse / global weakness. Mother states that patient fell to
the floor when trying to get out of bed. She was unable to stand / ambulate. They returned to the ED for further evaluation.
Medical History
Past Medical History
Past Medical History: Reports Other
Additional Past Medical History:
Left Optic Neuritis
Bipolar disorder
Past Surgical History: Reports Other
Additional Past Surgical History:
Left ACL surgery x 2
[place] teeth removal
Dental implant
Social History
Tobacco: Non-smoker
Alcohol: None
Drug: None
Family History
Family History: Other (Denies family history of MS)
Allergies / Home Medications
Allergies reflects when Allergies were last updated in better..
Home Medications with original date entered in better.
Allergy/Medication List:
Allergies
Allergy/AdvReac Type Severity Reaction Status Date / Time
adhesive tape Allergy Rash Verified 04/02/25 01:01
Home Medications
cranberry fruit 450 mg tablet (cranberry) 450 mg PO DAILY Supplement 03/20/25
divalproex 500 mg tablet,extended release 24 hr 500 mg PO QPM Mental Health/Anxiety 03/20/25
ferrous sulfate 325 mg (65 mg iron) tablet 325 mg PO DAILY Supplement 03/20/25
lemon balm 500 mg capsule 250 mg PO DAILY Supplement 03/20/25
omega-3 fatty acids-fish oil 684 mg-1,200 mg capsule,delayed release 1 cap PO DAILY Supplement 03/20/25
metoclopramide HCl 10 mg tablet (Reglan) 10 mg PO Q8H nausea #9 tabs 03/25/25
methylprednisolone 4 mg tablets in a dose pack (Medrol (David)) See Rx Instructions PO .COMPLEX #21 ea 04/01/25
gabapentin 100 mg tablet 100 mg PO TID 04/02/25
Review of Systems
-
History Source: Patient
A 12 point ROS was completed and negative except as noted: Yes
Constitutional: Reports Fatigue; Denies Fever or Chills
EENT: Denies Sore Throat
Respiratory: Denies Cough or Trouble Breathing
Cardiac: Denies Chest Pain or Palpitations
Abdomen/GI: Denies Abdominal Pain, Nausea, Vomiting or Diarrhea
: Reports Incontinence; Denies Dysuria or Bleeding
Musculoskeletal: Denies Joint Pain or Edema
Neurological: Reports Dizzy, Headache, Weakness, Numbness and Other (denies vision changes.)
Physical Exam
Vital Signs
Vital Signs
Temp Pulse Resp BP Pulse Ox
98.4 F 72 16 110/64 100
04/02/25 01:02 04/02/25 01:02 04/02/25 01:02 04/02/25 01:02 04/02/25 04:22
Physical Exam
General: Other (29 F with depressed affect and in no acute distress.)
HEENT: Moist mucous membranes and PERRLA
Respiratory: Clear; No Wheezes, Rales or Rhonchi
Cardiac: S1/S2 and Regular Rhythm; No Murmur
GI: Soft, Non Tender, Non Distended and Normal Bowel Sounds
Musculoskeletal: No Clubbing, No Cyanosis and No Edema
Neuro: AO x 3 and Other (Global weakness without appreciable focality or asymmetry.)
Impression/Plan
-
A/P: Patient is a 29y F with PMH significant for bipolar disorder and recent hospitalization for L optic neuritis who presents to ED complaining of recurrent / episodic weakness and new urinary incontinence.
Generalized Weakness
Urinary Incontinence
- Observe overnight for further evaluation and treatment.
- Etiology of ongoing symptoms is unclear.
- ? MS v atypical migraine v psychogenic v other.
- Migraine medications ordered PRN.
- Follow for new / worsening neurologic symptoms.
- Extensive evaluation has been performed (see prior visits).
- Check ESR, CRP. Check IFAbs, MMA, homocysteine (low normal B12 level).
- Neurology consulted for re-evaluation.
- Note that patient has a previously scheduled consultation with [facility] subspecialist on 04/03.
- Continue gabapentin for symptom management.
Bipolar Disorder
- Continue Depakote. Recent VPA levels were normal.
DVT Prophylaxis: SCDs
Code Status: Full
[2025-04-02 05:14] LABS: Hematocrit 39.1 % (37.0-47.0); Hemoglobin 12.4 g/dL (12.0-16.0); Mean Corp Hgb Conc. 31.7 g/dL (33.0-37.0); Mean Corpuscular Volume 82.5 fL (81.0-99.0); Platelet Count 228 10^3/uL (130-400); Red Cell Dist. Width 17.2 % (11.5-14.5)
[2025-04-02 05:24] LABS: Blood Urea Nitrogen 16 mg/dl (7-17); Calcium 9.2 mg/dl (8.4-10.2); Carbon Dioxide 22 mmol/L (22-30); Chloride 110 mmol/L (98-107); Estimated Creatinine Clearance 121 ml/min; Glucose 167 mg/dl (70-99); Potassium 4.1 mmol/L (3.5-5.1); Sodium 138 mmol/L (135-145); eGFR > 60.00
[2025-04-02 05:48] LABS: C-Reactive Protein < 5.00 mg/L (0.0-10.00)
[2025-04-02] MEDS: NEURONTIN 100 MG PO (08:21)
--- NOTE | 2025-04-02 12:37 | PTOTSP ---
pt currently requires no assistance to complete simple ADLs, functional transfers, ambulation. no acute OT needs identified at this time, will sign off.
--- NOTE | 2025-04-02 14:12 | W.DS.TRANS ---
DC Summary - Survey Field Technician
-
Discharge Instructions:
Discharge Diagnosis/Procedures Ongoing neurologic work up with recurrent
symptomas and concern for MA, optic neuritis vs
psychiatric disorder
Diet Regular
Instructions:
Stand-Alone Forms:
Changes to Home Medications: Yes
Discharge Medications:
DC Medications w/original date entered in [facility]
cranberry fruit 450 mg tablet (cranberry) 450 mg PO DAILY Supplement 03/20/25
divalproex 500 mg tablet,extended release 24 hr 500 mg PO QPM Mental Health/Anxiety 03/20/25
ferrous sulfate 325 mg (65 mg iron) tablet 325 mg PO DAILY Supplement 03/20/25
lemon balm 500 mg capsule 250 mg PO DAILY Supplement 03/20/25
omega-3 fatty acids-fish oil 684 mg-1,200 mg capsule,delayed release 1 cap PO DAILY Supplement 03/20/25
metoclopramide HCl 10 mg tablet (Reglan) 10 mg PO Q8H nausea #9 tabs 03/25/25
gabapentin 100 mg tablet 100 mg PO TID 04/02/25
Home Medication Changes
Corticosteroids stopped as per neurology recomendation
Pending Results: Yes
Additional Pending Results:
MMA and homocysteine level
--- NOTE | 2025-04-02 15:02 | CM ---
Pt admitted this AM via ED and discharged this afternoon. Pt with bipolar disorder and left optic neuritis. Physically (I) amb and adls, as the day goes on she gets 'antsy'
Appointment with Neurology tomorrow at [facility].
Plan: Discharge to home with no needs; f/u with [facility] Neurology tomorrow.
[2025-04-05 01:15] LABS: Intrinsic Factor Blocking Ab Negative (Negative)
== END 2025-04-02 15:18 | disposition home or self-care (01) ==
LOC: 3 WEST ACU 04:42
PROVIDERS: ADMITTING PHYSICIAN Hospitalist; ATTENDING PHYSICIAN Internal Medicine; EMERGENCY PHYSICIAN Emergency Medicine; FAMILY PHYSICIAN Family Medicine
DX: R53.1 Weakness (principal); F31.9 Bipolar disorder, unspecified; R32 Unspecified urinary incontinence; Z79.899 Other long term (current) drug therapy
CPT/HCPCS: 80048; 83090; 83921; 85027; 85652; 86140; 86340; 97162; 97165; 99285; G0378